=== PATIENT | male | born 1950 | race Caucasian/White ===

== ENCOUNTER 2016-09-26 10:23 | Inpatient (IN) | payer MEDICARE ==
[~2016-09-26] VITALS: Ht 182.9 cm; Wt 105.9 kg
[~2016-09-26 10:23] MED LIST: AMLO5TAB2 PO; ASPI325T PO; BENA20TA PO; FENO145T2 PO; GABA300C5 PO; HYDR-3583 PO; MEST60TA PO; MULT1TAB85 PO; PRAV40TA2 PO; PRED5TAB PO
[2016-09-27] MEDS: POVIDONE IODINE 7.5% SCRUB 118 ML BOTTLE TOP SCH (06:15)
[2016-09-27] MEDS ORDERED: ROPIVACAINE PERI-ARTICULAR INJECTION. PERIART SCH ×5 (06:15)
[2016-09-27] MEDS ORDERED: VANCOMYCIN 1000 MG/NS 250 ML (for <70 kg) IV SCH ×2 (06:15)
[2016-09-27] MEDS ORDERED: ceFAZolin 2 GM PREMIX 50 ML IV SCH (06:15)
[2016-09-27] MEDS ORDERED: LACTATED RINGER'S 1000 ML IV SCH (06:30)
[2016-09-27] MEDS ORDERED: INSULIN HUMAN REGULAR 1,000 UNITS/10 ML VIAL SQ PRN (06:30)
[2016-09-27] MEDS ORDERED: DEXAMETHASONE SOD PHOS 20 MG/5 ML VIAL IV ONE (06:30)
[2016-09-27] MEDS ORDERED: SODIUM CHLORID 0.9% 500 ML IV SCH (06:30)
[2016-09-27] MEDS ORDERED: METOPROLOL TARTRATE 25 MG TAB PO PRN (06:30)
[2016-09-27 06:41] VITALS: BP 140/84; PULSE 96; RESP 16; TEMP 97.1; O2SAT 100
--- NOTE | 2016-09-27 06:56 | HHI.DCPOC ---
Discharge Care Plan Diagnosis: (1) Primary localized osteoarthrosis, lower leg Your Health Problems Are: Difficulty with ADL Goals to Promote Your Health * To prevent worsening of your condition and complications * To maintain your health at the optimal level Directions to Meet Your Goals Take your medications as prescribed Follow your dietary instruction Follow activity as directed Keep your appointments as scheduled Take your immunizations and boosters as scheduled If your symptoms worsen call your PCP, if no PCP go to Urgent Care Center or Emergency Room Smoking is Dangerous to Your Health. Avoid second hand smoke Call the 24-hour hour crisis hotline for domestic abuse at Alexy Parker Sep 27, 2016 06:56
--- NOTE | 2016-09-27 06:57 | HHI.FF ---
Face to Face Verification Diagnosis: (1) Primary localized osteoarthrosis, lower leg Physical Therapy Gait training, Transfer training, bed to chair Knee: Total knee Left LE Weight Bearing: WB as tolerated Left LE Range of Motion: Active ROM Nursing Nursing: Jennifer teaching, Dressing changes Dressing Changes: Daily dressing change I have seen patient Eloy Altman on 09/27/16. My clinical findings support the need for the requested home health care services because: Limited ability to care for self High risk of falls I certify that my clinical findings support that this patient is homebound because: Post-op weakness Unsteady gait/balance Alexy Parker Sep 27, 2016 06:57
[2016-09-27] MEDS ORDERED: CPMMACHINE (06:58)
[2016-09-27] MEDS ORDERED: COMMODE 3-IN-11 MIS (06:58)
[2016-09-27] MEDS ORDERED: WALKER WHEELS/F1 MIS (06:58)
[2016-09-27] MEDS ORDERED: SODIUM CHLORIDE 0.9% IV SCH (07:00)
[2016-09-27] MEDS ORDERED: TRANEXAMIC ACID IV SCH (07:00)
[2016-09-27] MEDS ORDERED: MIDAZOLAM HCL 5 MG/5 ML VIAL ONE (07:34)
[2016-09-27] MEDS: GENTAMICIN SULFATE 80 MG/2 ML VIAL ONE ×2 (08:58→09:11)
[2016-09-27] MEDS ORDERED: ACETAMINOPHEN 1000 MG/100 ML VIAL IV ONE (09:57)
[2016-09-27] MEDS ORDERED: ALUMINUM/MAGNESIUM/SIMETH 30 ML CUP PO PRN (10:15)
[2016-09-27] MEDS ORDERED: diphenhydrAMINE HCL 50 MG/ML VIAL IV PRN (10:15)
[2016-09-27] MEDS ORDERED: BISACODYL 10 MG SUPP PR PRN (10:15)
[2016-09-27] MEDS ORDERED: Post-op Orders (for Pharmacy) MISC XX ONE (10:15)
[2016-09-27] MEDS ORDERED: NALOXONE HCL 0.4 MG/ML AMP IV PRN (10:15)
[2016-09-27] MEDS ORDERED: MAGNESIUM HYDROXIDE SUSP 30 ML CUP PO PRN (10:15)
[2016-09-27] MEDS ORDERED: MORPHINE SULFATE 4 MG/ML INJ IV PUSH PRN (10:15)
[2016-09-27] MEDS ORDERED: SODIUM CHLORIDE 0.9% FLUSH 5 ML FLUSH IVF PRN (10:15)
[2016-09-27] MEDS ORDERED: ZOLPIDEM TARTRATE 5 MG TAB PO PRN (10:15)
[2016-09-27] MEDS ORDERED: ONDANSETRON HCL 4 MG/2 ML VIAL IVP PRN (10:15)
--- NOTE | 2016-09-27 10:20 | PD.OP ---
cc: Aditya Smith MD Operative Report Date of Surgery: Sep 27, 2016 Preoperative Diagnosis: Left knee severe osteoarthritis Postoperative Diagnosis: Same Procedure: Left total knee arthroplasty Anesthesia: Gen. and adductor canal block Surgeon: Aditya Smith Fertilizer Applicator(s): MARYANN Walker The surgical procedure was assisted by my Advanced Registered Nurse Practitioner. My VINE [employer] F[employer]ING SUPERVISOR presence was necessary throughout this case for the manipulation and positioning of the surgical extremity. My VINE FR[employer] FARMING SUPERVISOR was assisting me throughout the duration of this procedure. The skill set of an Advance Registered Nurse Practitioner was medically necessary to complete this procedure. During the surgical case, the certified surgical tech/first assistant was working at the back table and the Advance Registered Nurse Practitioner was directly assisting me. Operation and Findings: IMPLANTS: DePuy Attune: Patella: size 35. Femur, posterior stabilized size 8. Tibia, rotating platform size 8. Tibial insert, rotating platform, posterior stabilized size 7 mm thickness. ESTIMATED BLOOD LOSS: 150 cc TOURNIQUET TIME: 43 minutes at 250 mmHg pressure. JUSTIFICATION FOR PROCEDURE: The patient has end-stage osteoarthritis to the knee. There is an attached conservative measures pathway form in the chart that describes the nonoperative measures that were undertaken prior to consideration of surgical management. The patient understood the risks and benefits of surgical management. See my office notes for further details PROCEDURE: The patient was brought back to the operative theatre. Adequate anesthesia was obtained. The patient received intravenous vancomycin and Ancef. The lower extremity was prepped and draped in the usual sterile fashion.The leg was exsanguinated, the tourniquet was raised. A standard anterior incision was performed followed by medial parapatellar arthrotomy was performed. End-stage arthritis was identified. Osteotomy of the patella was performed. We drilled holes for the patella. We trialed the patella component. We placed an intramedullary guide into the distal femur. We ultimately resected 14 mm off of the distal femur in 5 degrees of valgus. The remnants of the ACL and PCL were resected. Osteotomy of the proximal tibia was performed, resecting 5 mm off of the medial side. This was done with 3 degrees of posterior slope using an extramedullary guide. The distal end of the guide was placed in the mid aspect of the ankle. The femur was sized, and four chamfer cuts were completed in 3 of external rotation. We then cut the central box in the distal femur to replace the PCL. We resected the remnants of the menisci and removed osteophytes off of the femur and tibia. We then trialed the knee. We punched the tibia for the keel, and then used standard technique to cement in components. Excess cement was removed. We trialed the knee again and the final polyethylene thickness was chosen to provide extension to 0 degrees, and flexion of 140 degrees to gravity. The ligaments were appropriately balanced. Lateral release was necessary to obtain excellent patellofemoral tracking. The tourniquet was released and adequate hemostasis was obtained. An intra- articular injection of a ropivacaine cocktail was injected. The posterior knee was inspected for excess cement, which was removed. The final polyethylene was put into position after thorough irrigation. We then closed deep fascia with a #2 Stratafix followed by skin with 2-0 Vicryl followed by lamar. Postop plan is to weight-bear as tolerated. DVT prophylaxis will be performed with Adeel, SCAR cabezas, early mobilization, and Lovenox followed by aspirin. Aditya Smith MD Sep 27, 2016 10:20
[2016-09-27] MEDS ORDERED: ENOX40P SQ (10:22)
[2016-09-27] MEDS ORDERED: HYDR-3366 PO (10:22)
[2016-09-27] MEDS ORDERED: ASPI325T PO (10:22)
[2016-09-27] MEDS ORDERED: DO NOT ADM ANY ANTICOAGULANT DRUGS XX PRN (10:45)
[2016-09-27] MEDS ORDERED: fentaNYL CITRATE 250 MCG/5 ML AMP ONE (10:51)
[2016-09-27] MEDS ORDERED: *morphine SULFATE 8 MG/ML PERIprocedure ONLY ONE ×2 (10:54→11:54)
[2016-09-27] MEDS ORDERED: TRANEXAMIC ACID INJ 970 MG in SODIUM CHLORIDE 0.9% INJ 100 ML IV SCH (11:00)
--- NOTE | 2016-09-27 11:15 | RADRPT ---
EXAM DATE/TIME: 09/27/2016 10:46 [facility] COMPARISON: No previous studies available for comparison. INDICATIONS : Post-op total left knee arthroplasty. MEDICAL HISTORY : Hypertension. SURGICAL HISTORY : Total knee replacement, right. ENCOUNTER: Initial ACUITY: 1 day PAIN SCORE: 5/10 LOCATION: Left knee. FINDINGS: Two view examination of the left knee demonstrates postoperative left total knee replacement. Skin st aples anteriorly. Air in soft tissues. CONCLUSION: 1. Postoperative left total knee replacement. No complications identified. Sreekanth Warren MD on September 27, 2016 at 11:12 Board Certified Radiologist. This report was verified electronically.
[2016-09-27] MEDS: SODIUM CHLOR 0.9% 1000 ML INJ 1,000 ML IV SCH ×2 (11:20→21:26)
[2016-09-27] MEDS ORDERED: PROPOFOL 200 MG/20 ML AMP IV ONE (12:00)
[2016-09-27] MEDS ORDERED: LACTATED RINGER'S 1000 ML INJ 1,000 ML IV ONE (12:00)
[2016-09-27] MEDS ORDERED: BUPIVACAINE LIPOSOME PF 1.3% 20 ML VIAL ONE (12:30)
[2016-09-27] MEDS: PYRIDOSTIGMINE BROMIDE 60 MG TAB PO SCH ×2 (13:00→17:20)
--- NOTE | 2016-09-27 15:07 | PD.CONS ---
HPI Service [facility] Hospitalists Consult Requested By Dr. Aditya Smith Reason for Consult Medical Management Primary Care Physician Porter Stock, PhD, MD Diagnoses: History of Present Illness Mr. Altman is a pleasant 66 y/o WM with HTN, hyperlipidemia, Myasthenia gravis , and osteoarthritis. Pt was admitted to [facility] on 09/27/16 for a left total knee arthroplasty with Dr. Smith. Pt was previously seen by us during admission in 03/1206 when he had right total knee arthroplasty with Dr. Smith. His post-operative course was uneventful during that admission. [facility] Hospitalist team was consulted again to help manage the pts chronic medical issues. Pt was seen post-operatively and is doing well. Pts vital signs are stable. Garcia cath in place. Denies any chest pain, SOB, palpitations, dizziness, nausea or vomiting. Review of Systems Constitutional: DENIES: Fever, Chills Respiratory: DENIES: Cough, Shortness of breath Cardiovascular: DENIES: Chest pain, Palpitations Gastrointestinal: DENIES: Abdominal pain, Nausea, Vomiting Genitourinary: DENIES: Hematuria Integumentary: DENIES: Rash Neurologic: DENIES: Headache Psychiatric: DENIES: Confusion Past Family Social History Past Medical History Osteoarthritis HTN Hyperlipidemia Myasthenia gravis Condyloma acuminata/HPV DDD Peyronie's disease Past Surgical History Right total knee arthroplasty with Dr. Smith on 04/19/16 Right SI injection 10/2015 Left knee with partial synovectomy in 2009 Right knee surgery in [place] in the lumbar spine Cryotherapy for genital wart removal Tonsillectomy Bilateral blepharoplasty Reported Medications Prednisone 5 Mg Tab 5 Mg PO DAILY Pravastatin 40 Mg Tab 40 Mg PO DAILY Multivitamin Men (Multiple Vitamins W/ Minerals) 1 Tab Tab 1 Tab PO DAILY Mestinon (Pyridostigmine [place]) 60 Mg Tab 30 Mg PO TID Hydrocodone-Acetaminophen 10-325 mg Tab 2.5 Mg PO BID Gabapentin 300 Mg Cap 300 Mg PO BID Fenofibrate 145 Mg Tab 145 Mg PO HS Benazepril (Benazepril HCl) 20 Mg Tab 20 Mg PO DAILY Aspirin 325 Mg Tab 325 Mg PO DAILY Amlodipine (Amlodipine Besylate) 5 Mg Tab 5 Mg PO DAILY Allergies: Coded Allergies: Lipitor (Verified Allergy, Unknown, 09/27/16) pt states he is not allergic Family History Mother with hx of breast cancer Father with hx of Alzheimer's disease Social History Denies any alcohol, tobacco or illicit drug use Pt is currently and lives locally with his . 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 Physical Exam Vital Signs Vital Signs Date Time Temp Pulse Resp B/P Pulse Ox O2 Delivery O2 Flow Rate FiO2 09/27/16 13:00 111 14 128/77 96 Room Air 09/27/16 12:00 105 15 114/77 95 Room Air 09/27/16 11:30 97.5 100 15 127/74 97 Nasal Cannula 1 09/27/16 11:20 15 09/27/16 11:15 101 15 125/72 100 Nasal Cannula 3 09/27/16 11:00 100 15 120/75 98 Nasal Cannula 3 09/27/16 10:45 100 14 136/83 96 Nasal Cannula 3 09/27/16 10:37 97.5 102 14 129/77 96 Nasal Cannula 3 09/27/16 06:41 97.1 96 16 140/84 100 Physical Exam GENERAL: This is a well-nourished, well-developed patient, in no apparent distress. HEENT: Atraumatic. Normocephalic. No temporal or scalp tenderness. No scleral icterus. Airway patent. NECK: Trachea midline, supple, nontender CARDIO: Regular. RESP: CTA bilaterally. ABD: +BS, soft, non-tender, nondistended. EXT: Left knee bandages are c/d/i NEURO: Awake and alert. Motor and sensory grossly within normal limits. Normal speech. Laboratory Laboratory Tests Test 09/27/16 06:32 Blood Type O POSITIVE Antibody Screen NEGATIVE Imaging Last Impressions Knee X-Ray 09/27/16 1015 Signed Impressions: Service Date/Time: Tuesday, September 27, 2016 10:46 - CONCLUSION: 1. Postoperative left total knee replacement. No complications identified. Sreekanth Warren MD Assessment and Plan Problem List: (1) Primary localized osteoarthrosis, lower leg Status: Acute Plan: - Pt s/p left total knee arthroplasty on 09/27/[address] Smith - Post-op pain control per Ortho - PT daily - IS - Constipation precautions - DVT prophylaxis (2) Osteoarthritis Status: Chronic Plan: - See above. (3) HTN (hypertension) Status: Chronic Plan: - Home meds continued, Lisinopril 20mg po daily and Norvasc 5mg po daily - Monitor (4) Myasthenia gravis Status: Chronic Plan: - Cont. Mestinon 30mg po TID - Pt also takes Prednisone 5mg po daily (5) Hyperlipidemia Status: Chronic Plan: - Home meds continued Assessment and Plan Patient examined. Assessment and plan formulated with Nasra Rodas PA-C. I agree with the above. Problem Qualifiers (1) Primary localized osteoarthrosis, lower leg: Qualified Code: M17.12 - Primary localized osteoarthrosis, lower leg, left Nasra Rodas Sep 27, 2016 15:07 Davy Josue DO Sep 30, 2016 22:46
[2016-09-27 15:34] VITALS: BP 148/79; PULSE 119; RESP 19; TEMP 95.9; O2SAT 94
[2016-09-27 16:00] VITALS: BP 148/79; PULSE 119; RESP 19; TEMP 95.9; O2SAT 94
[2016-09-27] MEDS: ACETAMINOPHEN/HYDROcodone 325 MG/10 MG TAB PO PRN ×2 (17:28→22:30)
[2016-09-27 20:05] VITALS: BP 128/73; PULSE 106; RESP 19; TEMP 98.3; O2SAT 93
[2016-09-27] MEDS: SODIUM CHLORIDE 0.9% FLUSH 5 ML FLUSH IVF SCH (21:15)
[2016-09-27] MEDS: FENOFIBRATE 145 MG TAB PO SCH (21:22)
[2016-09-27] MEDS: GABAPENTIN 300 MG CAP PO SCH (21:22)
[2016-09-28] VITALS (7 sets, daily range): BP systolic 116–142; BP diastolic 65–82; PULSE 94–104; RESP 18–20; TEMP 95.9–98.1; O2SAT 93–96
[2016-09-28] MEDS: POVIDONE IODINE 7.5% SCRUB 118 ML BOTTLE TOP SCH (04:03)
[2016-09-28] MEDS: SODIUM CHLOR 0.9% 1000 ML INJ 1,000 ML IV SCH ×2 (05:33→16:15)
[2016-09-28 07:20] LABS: HEMATOCRIT 27.7 % (39.0-51.0); MEAN CELL VOLUME 92.4 FL (80.0-100.0); MEAN CORPUSCULAR HEMOGLOBIN 31.5 PG (27.0-34.0); MEAN CORPUSCULAR HGB CONC 34.1 % (32.0-36.0); PLATELET COUNT 231 TH/MM3 (150-450); RED BLOOD COUNT 2.99 MIL/MM3 (4.50-5.90); RED CELL DISTRIBUTION WIDTH 13.1 % (11.6-17.2); REVIEW FLAG FINAL; WHITE BLOOD COUNT 11.8 TH/MM3 (4.0-11.0)
[2016-09-28] MEDS ORDERED: DEXAMETHASONE SOD PHOS 20 MG/5 ML VIAL IV ONE (07:45)
[2016-09-28] MEDS: PYRIDOSTIGMINE BROMIDE 60 MG TAB PO SCH ×3 (08:17→18:21)
[2016-09-28] MEDS: predniSONE 5 MG TAB PO SCH (08:17)
[2016-09-28] MEDS: ENOXAPARIN SODIUM 40 MG/0.4 ML SYRINGE SQ SCH (08:17)
[2016-09-28] MEDS: GABAPENTIN 300 MG CAP PO SCH ×2 (08:17→21:33)
[2016-09-28] MEDS: LISINOPRIL 20 MG TAB PO SCH (08:17)
[2016-09-28] MEDS: SODIUM CHLORIDE 0.9% FLUSH 5 ML FLUSH IVF SCH ×2 (08:18→21:33)
[2016-09-28] MEDS: amLODIPine BESYLATE 5 MG TAB PO SCH (08:19)
[2016-09-28] MEDS: PRAVASTATIN SOD 40 MG TAB PO SCH (08:19)
[2016-09-28] MEDS: ACETAMINOPHEN/HYDROcodone 325 MG/10 MG TAB PO PRN ×3 (08:19→21:32)
--- NOTE | 2016-09-28 11:02 | PD.ORT.PN ---
Subjective Subjective Remarks doing well pain controlled Objective Vitals Vital Signs Date Time Temp Pulse Resp B/P Pulse Ox O2 Delivery O2 Flow Rate FiO2 09/28/16 08:15 94 21 09/28/16 08:00 95.9 95 20 128/80 96 09/28/16 07:41 Room Air 09/28/16 04:40 96.7 94 18 126/66 94 09/28/16 00:03 97.3 96 18 116/65 93 09/27/16 20:05 98.3 106 19 128/73 93 09/27/16 18:12 Nasal Cannula 1.00 09/27/16 16:00 95.9 119 19 148/79 94 09/27/16 15:34 95.9 119 19 148/79 94 09/27/16 13:00 111 14 128/77 96 Room Air 09/27/16 12:00 105 15 114/77 95 Room Air 09/27/16 11:30 97.5 100 15 127/74 97 Nasal Cannula 1 09/27/16 11:20 15 09/27/16 11:15 101 15 125/72 100 Nasal Cannula 3 I/O 09/27/16 09/27/16 09/27/16 09/28/16 09/28/16 09/28/16 07:00 15:00 23:00 07:00 15:00 23:00 Intake Total 1810 ml 1443 ml 1262 ml Output Total 675 ml 500 ml 1200 ml Balance 1135 ml 943 ml 62 ml Intake Oral 720 ml 480 ml IV Total 510 ml 723 ml 782 ml Other 1300 ml Output Urine Total 525 ml 500 ml 1200 ml Estimated Blood Loss 150 ml # Bowel Movements 0 0 Result Diagram: 09/28/16 0620 Imaging TKA no complications Objective Remarks LLE dressed and clean, 2+ DP, moves toes, calf soft Assessment & Plan Ortho Post Op Day #: 1 Problem List: Assessment and Plan POD #1 s/p L TKA Pt wants SNF due to stairs at home lovenox WBAT change dressing tomorrow Aditya Smith MD Sep 28, 2016 11:02
[2016-09-28] MEDS: FENOFIBRATE 145 MG TAB PO SCH (21:00)
[2016-09-28] MEDS: MULTIVITAMINS/MINERALS THERAPEUTIC TAB PO SCH (21:33)
[2016-09-28] MEDS: DOCUSATE SODIUM 100 MG CAP PO SCH (21:33)
[2016-09-29] MEDS: POVIDONE IODINE 7.5% SCRUB 118 ML BOTTLE TOP SCH (00:10)
[2016-09-29] MEDS: SODIUM CHLOR 0.9% 1000 ML INJ 1,000 ML IV SCH ×2 (00:10→12:15)
[2016-09-29 00:15] VITALS: BP 136/76; PULSE 98; RESP 18; TEMP 97.7; O2SAT 94
[2016-09-29 05:13] LABS: HEMATOCRIT 28.8 % (39.0-51.0); MEAN CELL VOLUME 93.2 FL (80.0-100.0); MEAN CORPUSCULAR HEMOGLOBIN 32.3 PG (27.0-34.0); MEAN CORPUSCULAR HGB CONC 34.7 % (32.0-36.0); PLATELET COUNT 245 TH/MM3 (150-450); RED BLOOD COUNT 3.09 MIL/MM3 (4.50-5.90); RED CELL DISTRIBUTION WIDTH 13.2 % (11.6-17.2); REVIEW FLAG FINAL; WHITE BLOOD COUNT 11.1 TH/MM3 (4.0-11.0)
[2016-09-29 08:00] VITALS: BP 147/99; PULSE 101; RESP 20; TEMP 95.3; O2SAT 97
[2016-09-29] MEDS: ENOXAPARIN SODIUM 40 MG/0.4 ML SYRINGE SQ SCH (08:31)
[2016-09-29] MEDS: ACETAMINOPHEN/HYDROcodone 325 MG/10 MG TAB PO PRN ×3 (08:31→16:14)
[2016-09-29] MEDS: LISINOPRIL 20 MG TAB PO SCH (08:32)
[2016-09-29] MEDS: DOCUSATE SODIUM 100 MG CAP PO SCH (08:32)
[2016-09-29] MEDS: MULTIVITAMINS/MINERALS THERAPEUTIC TAB PO SCH (08:32)
[2016-09-29] MEDS: predniSONE 5 MG TAB PO SCH (08:32)
[2016-09-29] MEDS: PYRIDOSTIGMINE BROMIDE 60 MG TAB PO SCH ×2 (08:32→12:35)
[2016-09-29] MEDS: GABAPENTIN 300 MG CAP PO SCH (08:32)
[2016-09-29] MEDS: amLODIPine BESYLATE 5 MG TAB PO SCH (08:32)
[2016-09-29] MEDS: PRAVASTATIN SOD 40 MG TAB PO SCH (08:32)
[2016-09-29] MEDS: SODIUM CHLORIDE 0.9% FLUSH 5 ML FLUSH IVF SCH (09:00)
[2016-09-29 11:58] VITALS: BP 147/80; PULSE 111; RESP 20; TEMP 95.9; O2SAT 98
[2016-09-29 16:09] VITALS: BP 124/69; PULSE 104; RESP 20; TEMP 96; O2SAT 98
--- NOTE | 2016-10-01 18:37 | HHI.DS ---
Discharge Summary Admission Date Sep 27, 2016 at 05:40 Discharge Date: Sep 29, 2016 Admitting Diagnosis primary localized OA, lower leg Diagnosis: (1) Primary localized osteoarthrosis, lower leg Diagnosis: Principal Procedures left TKA Brief History This is a 66 year old male patient with severe OA of the left knee CBC/BMP: 09/29/16 0418 Significant Findings Laboratory Tests Test 09/29/16 04:18 White Blood Count 11.1 TH/MM3 (4.0-11.0) Red Blood Count 3.09 MIL/MM3 (4.50-5.90) Hemoglobin 10.0 GM/DL (13.0-17.0) Hematocrit 28.8 % (39.0-51.0) PE at Discharge LLE dressed and clean, 2+ DP, moves toes, calf soft Hospital Course The patient was admitted to the hospital for severe OA of the left knee to have a left TKA. The patient's surgery went well with no complications. The patient had a normal hospital course. The patient is WBAT. The patient was discharged to SNF. The patient will f/u with Dr Smith in 1-2 weeks. Pt Condition on Discharge: Stable Discharge Disposition: Discharge to SNF Discharge Instructions Diet Instructions: As Tolerated, No Restrictions Activities You Can Perform: Weight Bearing as Bhavani Activities to Avoid: Strenuous Activity Follow up Referrals: Orthopedics with Aditya Smith MD New Medications: Aspirin (Aspirin) 325 Mg Tab 325 MG PO DAILY Start Aspirin after Lovenox is completed. Prevent Blood Clot # 30 Ref 0 TAB Commode 3-in-1 (Commode 3-in-1) 1 Mis Mis 1 EA .ROUTE DIRECTED #1 Ref 0 EA CPM-Continuous Passive Motion Machine (CPM-Continuous Passive Motion Machine) 1 Ea Device 1 EA .ROUTE DIRECTED #1 Ref 0 EA Enoxaparin Inj (Lovenox Inj) 40 Mg/0.4 Ml Syr 40 MG SQ DAILY Start Aspirin after Lovenox is completed. Blood Clot Prevention # 8 Ref 0 SYRINGE Hydrocodone-Acetaminophen ([place]) 10-325 Mg Tab 1-2 TAB PO Q4H PRN PAIN #60 Ref 0 TAB Walker with Front Wheels (Walker with Front Wheels) 1 Mis Mis 1 EA .ROUTE DIRECTED #1 Ref 0 EA Continued Medications: Amlodipine (Amlodipine) 5 Mg Tab 5 MG PO DAILY Blood Pressure Management #30 Ref 0 TAB Benazepril (Benazepril) 20 Mg Tab 20 MG PO DAILY Blood Pressure Management #30 Ref 0 TAB Fenofibrate (Fenofibrate) 145 Mg Tab 145 MG PO HS #30 Ref 0 TAB Gabapentin (Gabapentin) 300 Mg Cap 300 MG PO BID #60 Ref 0 CAP Multiple Vitamins W/ Minerals (Multivitamin Men) 1 Tab Tab 1 TAB PO DAILY Nutritional Supplement Ref 0 TAB Pravastatin (Pravastatin) 40 Mg Tab 40 MG PO DAILY Cholesterol Management #30 Ref 0 TAB Prednisone (Prednisone) 5 Mg Tab 5 MG PO DAILY Ref 0 TAB Pyridostigmine (Mestinon) 60 Mg Tab 30 MG PO TID Manage Myastenia Gravis #180 Ref 0 TAB Discontinued Medications: Aspirin (Aspirin) 325 Mg Tab 325 MG PO DAILY #30 Ref 0 TAB Hydrocodone-Acetaminophen (Hydrocodone-Acetaminophen) 10-325 mg Tab 2.5 MG PO BID PAIN Ref 0 TAB Alexy Parker Oct 01, 2016 18:37
== END 2016-09-29 18:29 | DRG 470 ==
LOC: HSDI 09-27 05:40 → N06A 09-27 15:01
PROVIDERS: ADMIT Orthopaedic Surgery; ATTEND Orthopaedic Surgery
PROC: 3E0T3CZ (ICD-10-PCS; 2016-09-27)
PROC: 0SRD0J9 Replacement of Left Knee Joint with Synthetic Substitute, Cemented, Open Approach (ICD-10-PCS; principal; 2016-09-27 08:11)
DX: M17.12 Unilateral primary osteoarthritis, left knee (principal); G70.00 Myasthenia gravis without (acute) exacerbation; I10 Essential (primary) hypertension; E78.5 Hyperlipidemia, unspecified; Z96.651 Presence of right artificial knee joint
CPT/HCPCS: 73560; 85027; 86850; 86900; 86901; 94150; C1776; C9290; J0131; J0171; J0690; J0735; J1100; J1580; J1650; J1885; J2250; J2270; J2795; J3010; J3370; J7030; J7050; J7120; J7512; L1830

== ENCOUNTER 2017-05-17 06:19 | Inpatient (IN) | payer MEDICARE ==
[2017-05-17] VITALS (12 sets, daily range): BP systolic 126–143; BP diastolic 72–88; PULSE 69–87; RESP 16–18; TEMP 97.6–98.5; O2SAT 94–96
[~2017-05-17] VITALS: Ht 180.3 cm; Wt 94.8 kg
[~2017-05-17 06:19] MED LIST changes: +COMMODE 3-IN-11 MIS; +CPMMACHINE; +ENOX40P SQ; +HYDR-3366 PO; -HYDR-3583 PO; +WALKER WHEELS/F1 MIS
[2017-05-17] MEDS ORDERED: IOHEXOL 350 MG/ML 100 ML BTL (for Cath Lab) OTHER ONE (06:20)
[2017-05-17] MEDS ORDERED: MIDAZOLAM HCL 2 MG/2 ML VIAL ONE (08:22)
[2017-05-17] MEDS ORDERED: HEPARIN-NS/PF INJ 1,000 ML ONE (08:22)
[2017-05-17] MEDS ORDERED: NITROGLYCERIN INJ 5 ML ONE (08:23)
[2017-05-17] MEDS ORDERED: HEPARIN SODIUM - IV 10,000 UNITS/10 ML VIAL ONE (08:23)
[2017-05-17] MEDS ORDERED: MULTTAB67 PO (08:33)
[2017-05-17] MEDS ORDERED: OMEGA K P-ARTICULR (08:33)
[2017-05-17] MEDS ORDERED: METO25TA3 PO (08:33)
[2017-05-17] MEDS ORDERED: OMEP20TA PO (08:33)
[2017-05-17] MEDS ORDERED: [UNRECOGNIZED DRUG - OTHER] P-ARTICULR (08:33)
[2017-05-17] MEDS ORDERED: TUMERIC CURCUMIN PO (08:33)
[2017-05-17] MEDS ORDERED: ARTIDRO EACH EYE (08:33)
[2017-05-17] MEDS ORDERED: [UNRECOGNIZED DRUG - CODE] PO (08:33)
[2017-05-17] MEDS ORDERED: TYLE325T PO (08:33)
[2017-05-17] MEDS ORDERED: MAGN400T2 PO (08:33)
[2017-05-17] MEDS ORDERED: GLUCOCIL PO (08:33)
[2017-05-17] MEDS ORDERED: [UNRECOGNIZED DRUG - OTHER] (08:33)
[2017-05-17] MEDS ORDERED: LACTCAP8 PO (08:33)
[2017-05-17] MEDS ORDERED: PEPP90CA PO (08:33)
[2017-05-17] MEDS ORDERED: [UNRECOGNIZED DRUG - OTHER] P-ARTICULR (08:33)
[2017-05-17] MEDS ORDERED: CYAN1TAB24 PO (08:33)
[2017-05-17] MEDS ORDERED: SEA KELP P-ARTICULR ×2 (08:33)
[2017-05-17] MEDS ORDERED: BACL10TA PO (08:33)
[2017-05-17] MEDS ORDERED: VITA250T3 PO (08:33)
[2017-05-17] MEDS ORDERED: GARC500T PO (08:33)
[2017-05-17] MEDS ORDERED: OREGANO OIL PO (08:33)
[2017-05-17] MEDS ORDERED: FISHCAP4 PO (08:33)
[2017-05-17] MEDS ORDERED: BENA40TA PO (08:33)
[2017-05-17] MEDS ORDERED: TH F1000 PO (08:33)
[2017-05-17] MEDS ORDERED: SAW450CA2 PO (08:33)
[2017-05-17] MEDS ORDERED: CO Q100C9 P-ARTICULR (08:33)
[2017-05-17] MEDS ORDERED: NITR0.4S SL (08:33)
[2017-05-17] MEDS ORDERED: ZINC50TA2 PO (08:34)
[2017-05-17] MEDS ORDERED: MISC INFORMATION XX ONE (09:30)
[2017-05-17] MEDS ORDERED: oxyCODONE/ACETAMINOPHEN 5 MG/325 MG TAB PO PRN ×2 (09:30)
[2017-05-17] MEDS ORDERED: BACITRACIN OINT 0.9 GM PKT TOP ONE (09:30)
--- NOTE | 2017-05-17 09:33 | CATHPROC ---
[employer] HIS Report Study Information Study Number Admission Scheduled Start Study Start [id number] May 17 2017 6:19AM 05/17/2017 May 17 2017 8:14AM [place] [facility] Cardiac Catheterization Admit Source Facility Department Other [facility] - Director Of Accounting Physician and Clinical Staff Initial Hermann Malin Cloud Consultant Santo RN, Joe Recorder Wesley Rodríguez,RT(R) Stephanie Lara,RT(R) (BS) Procedures Performed Procedure Location (Site) Vessel Name Angiogram LV LV Ventricle Coronary Angiograms LCA Left Coronary Coronary Angiograms RCA Right Coronary L Heart Cath Equipment Time Hydroelectric Production Manager Description Size Mfg Part Number Used/Scraped TRANSDUCER, TRUWAVE [id number] 08:35 DOHERTY BERMUDEZ * Used W/STOCKCOCK *[id number] *[id number] *[id number] PIGTAIL ANG. 145 INFINITI [id number] CATHETER *[id number] 08:35 [employer] INDUSTRIES PACK, CCL CUSTOM * Used *[id number] 08:35 [employer] SUPPORT, ARTERIAL ADULT 27698 *[id number] Used [id number] 08:35 [employer] PACER PEN, SKIN DUAL W/ RULER * Used *[id number] BAND, RADIAL COMPRESSION TR [id number] 09:19 [employer] MEDICAL 24CM Used SHORT 24 *[id number] SHEATH, FR6 RADIAL PRELUDE 08:35 Blackstrap FR 6 [id number] Used EASE 11CM [id number] 08:35 [employer] WIRE, EXCHANGE 260CM 3MMJ 260CM Used *[id number] 09:14 NAMIC TUBING, HIGH PRESSURE 20" 20" Used *[id number] 09:14 NAMIC TUBING, HIGH PRESSURE 20" 20" Used *[id number] 08:35 [employer] OMNIPAQUE, 350 MG, 150ML 150ML [id number] Used 09:16 [employer] OMNIPAQUE, 350 MG, 50ML 50ML [id number] Used [id number] 08:35 [employer] BLANKET,WARM AIR CCL * Used *[id number] Equipment Model, Serial, Lot Number and Expiration Data Description Model Number Serial Number Lot Number Expiration Date BAND, RADIAL COMPRESSION TR [id number] 02-22-2020 SHORT 24 History: Allergies Allergy Reaction atorvastatin History: Risk Factors Family History of Hypertension Dyslipidemia Previous [facility] Previous Heart Failure Premature CAD Yes Yes No No No Prior Valve Prior PCI Prior CABG Surgery No No No Cerebrovascular Peripheral Artery Chronic Lung On Dialysis Diabetes Disease Disease Disease No No No No No History: Stress Tests Stress or Imaging Studies Performed Yes Standard Exercise Stress Test No Stress Echo No Stress Test SPECT Stress Test SPECT Result Stress Test SPECT Ischemia Risk/Extent Yes Positive High Stress Test CMR No Cardiac CTA Coronary Calcium Score No No History: Other Current Smoker No Labs Hgb (g/dl) Hct (%) WBC (l/cumm) Platelets (thousands) 11.60-17.00 35.00-51.00 4.00-11.00 150.00-450.00 11.5 35.7 10.4 335 Glucose (mg/dl) BUN (mg/dl) Creatinine (mg/dl) BUN:Creatinine (1:x) 74.00-106.00 7.00-18.00 0.50-1.30 10.00-20.00 115 18 0.8 22.5 Na (meq/l) K (meq/l) 136.00-145.00 3.50-5.10 145 4.5 CPK-MB (ng/ML) 0.50-3.60 Not Drawn Medication Medication Total Dose (Bolus/Oral) Medication Total Dosage/Unit 1% XYLOCAINE 5 mL FENTANYL 50 mcg HEPARIN 5000 units NTG (IC) 200 mcg VERSED 2 mg Medications (Bolus/Oral) Medication Time Given Dosage/Unit Administered By Reason FENTANYL 05/17/2017 8:50:52 AM 50 mcg Joe Blanchard RN 50 mcg FENTANYL given in lab by Joe Blanchard RN in Left Antecubital via Peripheral IV. Ordered by Hermann Gaviria. VERSED 05/17/2017 8:51:39 AM 2 mg Joe Blanchard RN 2 mg VERSED given in lab by Joe Blanchard RN in Left Antecubital via Peripheral IV. Ordered by Hermann Nunn. 1% XYLOCAINE 05/17/2017 8:53:33 AM 5 mL Hermann Nunn 5 mL 1% XYLOCAINE given in lab by Hermann Nunn in Right Radial via Subcutaneous. Ordered by Hermann Nunn. HEPARIN 05/17/2017 8:57:04 AM 5000 units Joe Blanchard RN 5000 units HEPARIN given in lab by Joe Blanchard RN in Left Antecubital via Peripheral IV. Ordered by Hermann Nunn. NTG (IC) 05/17/2017 8:57:19 AM 200 mcg Hermann Nunn 200 mcg NTG (IC) given in lab by Hermann Nunn via Intra-arterial. Ordered by Hermann Nunn. Medication (Drip) Medication Time Given Dosage/Unit Concentration/Unit Diluent (ml) Solution IV Solutions 05/17/2017 8:23:17 AM 0 mL (IV) 500 NaCl .9 Patient arrived on IV Solutions given by Hermann Nunn in Left Antecubital via Peripheral IV. Pump/D rip Flow = 20 ml/hr using NaCl .9. Ordered by Hermann Nunn. Initial Case Assessment Cardiovascular HR Rhythm NIBP Chest Pain 62 sr 123/79 0 Edema Present Skin color Skin None Normal Warm Dry Circulatory - Right Pulses Dorsalis Pedis Femoral Radial 3 3 3 Scale (0,1,2,3,4,d) Scale (0,1,2,3,4,d) Neurological State Oriented to time-place- Alert Moves all extremities person Respiration - General Respiration Rate SpO2 (%) O2 (lpm) (B/min) 18 96 0 Final Case Assessment Cardiovascular HR Rhythm NIBP Chest Pain 68 sr 123/78 0 Edema Present Skin color Skin None Normal Warm Dry Circulatory - Right Pulses Dorsalis Pedis Femoral Radial 3 3 3 Scale (0,1,2,3,4,d) Scale (0,1,2,3,4,d) Neurological State Oriented to time-place- Alert Moves all extremities person Respiration - General Respiration Rate SpO2 (%) O2 (lpm) (B/min) 18 96 2 Chronological Log Time Study Chronological Log 8:14:32 Patient arrived via Bed. 8:14:34 Patient Name, D.O.B, / Armband Verified By R.N. 8:14:35 Consent signed by the physician and the patient and verified by the Director Of Accounting staff. 8:14:36 Pre-op and post- op instructions given; patient acknowledges understanding of instructions. Vitals capture started with the following parameters, Patient=Adult, Interval=5 min, Initial Pre vgsvw=422 mmHg, 8:20:49 Deflation Rate=5 mmHg, Cuff placed on Left Arm 8:21:28 HR=66 bpm, TORM=445/79 mmhg, SpO2=97.0 %, Resp=18 B/min, Zaldivar=2 8:22:37 Verbal Stimulation=2 Physical Stimulation=2 Airway=2 Respiration=2 TOTAL=8. (0=absent, 1=oliveira ited, 2=present) 8:22:47 Presedation assessment performed by Director Of Accounting RN. 8:22:49 Patient has been NPO for More than 6Hrs. 8:22:52 Skin Breakdown-noted is scratches present on left forearm. 8:23:08 A # 20 IV was noted in the Antecubital (left). Grade = 0 Patient arrived on IV Solutions given by Hermann Nunn in Left Antecubital via Peripheral IV. P ump/Drip Flow = 20 8:23:17 ml/hr using NaCl .9. Ordered by Hermann Nunn. 8:23:40 History and physical on the chart or being dictated. Assessment: Initial Case, HR=62 BPM, Rhythm=sr, EQXF=226/79 mmhg, Chest Pain=0, Edema=None, [place] r=Normal, Skin = Warm, Dry 8:23:44 Right Pulses: Lan Ped=3, Femoral=3, Radial=3 Neurological: State=Alert, Ox3, OVIEDO Respiration: Resp=18 B/min, SpO2=96 %, O2=0 lpm 8:24:06 Reference ECG taken 8:25:44 Right groin and right radial prepped with 2% chlorhexidine, and with a 3 min. waiting time. 8:26:06 Positive Allens test performed by Dr. Nunn and Wesley Rodríguez. 8:26:23 HR=64 bpm, MTOC=771/78 mmhg, Resp=17 B/min, Zaldivar=2 8:31:24 HR=65 bpm, YCYH=875/75 mmhg, SpO2=96.0 %, Resp=18 B/min, Zaldivar=2 8:34:56 Pressure channel 1 zeroed. 8:36:23 HR=68 bpm, QBLD=921/77 mmhg, SpO2=95.0 %, Resp=18 B/min, Zaldivar=2 8:41:29 HR=63 bpm, ZVXN=434/69 mmhg, SpO2=94.0 %, Resp=16 B/min, Zaldivar=2 8:46:24 HR=67 bpm, FBGS=690/80 mmhg, SpO2=96.0 %, Resp=18 B/min, Zaldivar=2 Time Out. Correct patient, correct procedure,correct physician, ,power injector not loaded with contrast with surgical 8:49:45 team present. Time Out Concurred by MD, individual staff and SURVEY WORKER in procedure. Not loaded at th is time. 8:50:52 50 mcg FENTANYL given in lab by Joe Blanchard RN in Left Antecubital via Peripheral IV. Order ed by Hermann Nunn. 8:51:25 HR=69 bpm, WHYI=614/78 mmhg, SpO2=92 %, Resp=18 B/min, Zaldivar=2 8:51:39 2 mg VERSED given in lab by Joe Blanchard RN in Left Antecubital via Peripheral IV. Ordered Hermann Betancur. 8:53:21 Case Start 8:53:22 Verbal Stimulation=2 Physical Stimulation=2 Airway=2 Respiration=2 TOTAL=8. (0=absent, 1=oliveira ited, 2=present) 8:53:33 5 mL 1% XYLOCAINE given in lab by Hermann Nunn in Right Radial via Subcutaneous. Ordered Hermann Betancur. 8:56:26 HR=67 bpm, JEEN=257/73 mmhg, SpO2=94.0 %, Resp=16 B/min, Zaldivar=2 8:56:43 Access site was Radial Artery. right radial A SHEATH, FR6 RADIAL PRELUDE EASE 11CM FR 6 was advanced into the Radial (right) using the Jonas elizabeth 8:56:52 technique. 8:57:04 5000 units HEPARIN given in lab by Joe Blanchard RN in Left Antecubital via Peripheral IV. Or dered by Hermann Nunn. 8:57:19 200 mcg NTG (IC) given in lab by Hermann Nunn via Intra-arterial. Ordered by Carley Nunn JR 5.0 INFINITI CATHETER FR 6 was advanced over a wire. OMNIPAQUE, 350 MG, 150ML 150ML was use d for 8:58:09 injections. Recorded Pressure: LV, HR=65, Condition=Condition 1 9:01:13 (Left Ventricle) LV 106/11/17 9:01:25 HR=68 bpm, XQCH=202/72 mmhg, SpO2=95.0 %, Resp=18 B/min, Zaldivar=2 Recorded Pressure: LV, Ao, HR=70, Condition=Condition 1 9:01:28 (Left Ventricle) LV 110/11/20, (Aorta) Ao 109/67/86 Recorded Pressure: Ao, HR=70, Condition=Condition 1 9:01:54 (Aorta) Ao 107/64/84 9:02:48 The RCA was injected and visualized at various angles. OMNIPAQUE, 350 MG, 150ML 150ML used . After removing the current catheter a JL 3.5 INFINITI CATHETER FR 6 was advanced over a WIRE, E XCHANGE 260CM 9:03:49 3MMJ 260CM. 9:04:07 The LCA was injected and visualized at various angles. OMNIPAQUE, 350 MG, 150ML 150ML used . 9:06:24 HR=74 bpm, DMRU=956/79 mmhg, SpO2=95.0 %, Resp=15 B/min, Zaldivar=2 9:08:12 The LCA was injected and visualized at various angles. OMNIPAQUE, 350 MG, 150ML 150ML used . 9:10:53 Power Injector being loaded by Joe Blanchard rn. verified by Stephanie Dent. 9:11:25 HR=70 bpm, MOHP=702/81 mmhg, SpO2=94.0 %, Resp=15 B/min, Zaldivar=2 After removing the current catheter a PIGTAIL ANG. 145 INFINITI CATHETER FR 6 was advanced over a WIRE, 9:14:28 EXCHANGE 260CM 3MMJ 260CM. 9:15:51 The LV was injected at 10 cc/sec for a total of 30. OMNIPAQUE, 350 MG, 150ML 150ML used. 9:16:26 HR=76 bpm, VFSL=245/78 mmhg, SpO2=95.0 %, Resp=16 B/min, Zaldivar=2 9:16:29 Catheter was removed OTW Assessment: Final Case, HR=68 BPM, Rhythm=sr, YKKD=320/78 mmhg, Chest Pain=0, Edema=None, Color =Normal, Skin = Warm, Dry 9:19:12 Right Pulses: Lan Ped=3, Femoral=3, Radial=3 Neurological: State=Alert, Ox3, OVIEDO Respiration: Resp=18 B/min, SpO2=96 %, O2=2 lpm 9:20:10 Catheter(s) removed without difficulty 9:21:27 HR=67 bpm, PWUO=804/76 mmhg, SpO2=96.0 %, Resp=16 B/min, Zaldivar=2 9:24:37 Case End Radial Compression Device Used. 12 mLs of air placed in BAND, RADIAL COMPRESSION TR SHORT 24 24 CM. Affected 9:24:46 hand 92 % O2 saturation. 9:25:34 No case complications noted. 9:25:36 Cine recording checked. 9:25:44 Contrast Scanned 9:25:52 A Left Heart Cath was performed. 9:26:22 Patient moved to stretcher 9:26:27 Vitals capture stopped. 9:27:50 Patient moved to stretcher End Study - Contrast Media Used In Study Contrast Total Opened (mL) Total Used (mL) Total Wasted (mL) Omnipaque 90 90 0 End Study - Maximum Contrast Load Max Contrast Load (mL) 593.2 End Study - Radiation Exposure Fluoro Time (minutes) 3.6 End Study - Patient Disposition Complications Transferred To Telemetry Bed
[2017-05-17] MEDS ORDERED: CHLORHEXIDINE GLUCONATE 4% SOLN 120 ML BTL TOPICAL SCH (10:45)
[2017-05-17] MEDS ORDERED: PAPAVERINE INJ 60 MG, NITROGLYCERIN INJ 100 MCG, DILTIAZEM INJ 100 MG in SODIUM CHLORID... IRRIGATION SCH (10:45)
[2017-05-17] MEDS ORDERED: CEFAZOLIN INJ 500 MG in SODIUM CHLORIDE 0.9% IRR BTL 500 ML IRRIGATION SCH (10:45)
[2017-05-17] MEDS ORDERED: ceFAZolin 2 GM PREMIX 50 ML IV SCH (10:45)
[2017-05-17] MEDS ORDERED: INSULIN REGULAR (IV INFUSION) 100 UNITS in SODIUM CHLORIDE 0.9% INJ 100 ML IV SCH (10:45)
[2017-05-17] MEDS ORDERED: SODIUM CHLORIDE 0.9% FLUSH 10 ML FLUSH IV FLUSH PRN (10:45)
[2017-05-17] MEDS ORDERED: METOPROLOL TARTRATE 25 MG TAB PO SCH (10:45)
--- NOTE | 2017-05-17 11:16 | MA ---
cc: LEONELANELLYHOUSTON DATE: 05/17/2017 PROCEDURES PERFORMED 1. Cardiac fluoroscopy with interpretation. 2. Left heart catheterization. 3. Left ventriculography. 4. Coronary angiography. 5. Left upper extremity angiography. METHOD Risks, benefits and alternatives were discussed with the patient, the patient understood and consented to the procedure. The patient was brought to the catheterization lab and placed on the catheterization table. Right wrist was prepped and draped in sterile fashion. Right wrist was anesthetized with 2% lidocaine. Right radial artery was cannulated and a 6-Latvian 7 cm sheath was placed without difficulty. LEFT HEART CATHETERIZATION A 6-Latvian angled pigtail catheter was advanced across the aortic valve without difficulty. Intraventricular hemodynamics measured at 110/11 mmHg. Left end-diastolic pressure 10 mmHg. No significant aortic stenosis by transaortic valve or pullback gradient. LEFT VENTRICULOGRAPHY Left ventriculography was performed in right anterior oblique view using a 6-Latvian angled pigtail catheter and a 30 cc contrast injection showing good opacification. Left ventricular ejection fraction visually estimated at 45%. There is regional anterior, anterolateral hypokinesis. No significant mitral regurgitation noted. CORONARY ANGIOGRAPHY Left coronary circulation was selectively engaged with 6-Latvian JL-3.5 catheter. Right coronary circulation was selectively engaged with 6-Latvian JR-5 catheter. CORONARY ANATOMY 1. Distal left main coronary has heavy calcium present with 90% stenosis. 2. Left anterior descending coronary has heavy calcium present with a 95% stenosis present. The proximal to mid left anterior descending gives rise to a smaller diagonal branch, has minor luminal irregularities. In the mid segment there is a 75% stenosis and then in the apex of the LAD itself and also has moderate diffuse disease. 3. Left circumflex gives rise to a very large first obtuse marginal branch, sub-branch, has minor luminal irregularities throughout the mid and distal segment with ostial 90% stenosis in the circumflex. 4. Right coronary is a dominant vessel giving rise to a posterior descending coronary. Right coronary mid segment has a 50% stenosis, there is otherwise minor luminal irregularities and moderate calcium present. LEFT UPPER EXTREMITY ANGIOGRAPHY Left subclavian artery was selectively engaged with a 6-Latvian JL-3.5 catheter to assess for suitability of the left internal mammary as a graft conduit (left internal mammary is widely patent, left subclavian although tortuous widely patent). CONCLUSION 1. Severe left main and three-vessel coronary artery disease. 2. Mild to moderately reduced left ventricular systolic function with regional wall motion abnormalities. 3. Normal left-sided filling pressure. 4. Widely patent left internal mammary artery. PLAN Monitor the patient closely for any post procedural complications, symptomatically and hemodynamically, he is doing very well. Will consult cardiothoracic surgery for consideration of bypass surgery, probably would keep him here in the hospital and hopefully get the surgery done soon given the severity of his left main. MD ARLETTE Chin/MAY /9:32 AM /10:52 AM
--- NOTE | 2017-05-17 12:43 | RADRPT ---
EXAM DATE/TIME: 05/17/2017 11:05 [facility] COMPARISON: No previous studies available for comparison. INDICATIONS : Preop heart surgery. MEDICAL HISTORY : Hypertension. GERD. Myasthenia Gravis. SURGICAL HISTORY : Tonsillectomy. Appendectomy. Right knee replacement. Cardiac catheterization. ENCOUNTER: Initial ACUITY: 1 day PAIN SCORE: 1/10 LOCATION: Bilateral neck PEAK SYSTOLIC VELOCITIES (cm/sec): ICA/CCA RATIO: Right: 1.1 Left: 1.0 ICA: Right: 104 Left: 97 CCA: Right: 92 Left: 94 ECA: Right: 107 Left: 73 VERTEBRAL: Right: 52 antegrade Left: 71 antegrade Elevated flow velocities and ICA/CCA ratios have been found to correlate with increased degrees of vessel stenosis, calculated as percentage of diameter relative to a normal segment of distal ICA/CCA FINDINGS: RIGHT CAROTID: Mild calcified plaque. No significant stenosis is visualized. The waveforms are within normal limits . LEFT CAROTID: Minimal plaque. No significant stenosis is visualized. The waveforms are within normal limits. VERTEBRAL ARTERIES: Antegrade flow is seen in both vertebral arteries. MISCELLANEOUS: None. CONCLUSION: 1. Mild carotid plaque without significant flow-limiting stenosis. 2. Antegrade vertebral artery flow bilaterally. Chandra Brown MD on May 17, 2017 at 12:38 Board Certified Radiologist. This report was verified electronically.
--- NOTE | 2017-05-17 12:46 | RADRPT ---
EXAM DATE/TIME: 05/17/2017 11:22 [facility] COMPARISON: No previous studies available for comparison. INDICATIONS : Pre op cardiac surgery. MEDICAL HISTORY : Hypertension. GERD. Myasthenia Gravis. SURGICAL HISTORY : Tonsillectomy. Appendectomy. Right knee replacement. Cardiac catheterization. ENCOUNTER: Initial ACUITY: 1 day PAIN SCORE: 2/10 LOCATION: Bilateral legs. GREATER SAPHENOUS VEIN THIGH: PROXIMAL: Right 6 mm Left 7 mm MID: Right 6 mm Left 5 mm DISTAL: Right 5 mm Left 6 mm CALF: PROXIMAL: Right 4 mm Left 4 mm MID: Right 3 mm Left 3 mm DISTAL: Right 3 mm Left 3 mm FINDINGS: The venous system of the lower extremities are patent by color Doppler imaging. Measurements of the leg veins (in mm) are listed above. CONCLUSION: 1. Lower extremity venous mapping, as above. Chandra Brown MD on May 17, 2017 at 12:44 Board Certified Radiologist. This report was verified electronically.
--- NOTE | 2017-05-17 12:46 | RADRPT ---
EXAM DATE/TIME: 05/17/2017 11:16 [facility] COMPARISON: No previous studies available for comparison. INDICATIONS : Preop heart surgery. MEDICAL HISTORY : Hypertension. GERD. Myasthenia Gravis. SURGICAL HISTORY : Tonsillectomy. Appendectomy. Right knee replacement. Cardiac catheterization. ENCOUNTER: Initial ACUITY: 1 day PAIN SCORE: 2/10 LOCATION: Bilateral leg. TECHNIQUE: Venous ultrasound of the left and right leg was performed from the inguinal ligament to the proximal calf. Real-time, color Doppler and spectral tracing, compression and augmentation techniques were us ed. FINDINGS: RIGHT LEG: There is normal compressibility of the deep venous system from the inguinal region to the proximal ca lf. No echogenic clot is seen in the lumen of the common femoral, femoral, popliteal, and posterior tibial veins. There is a normal response of the venous system to proximal and distal augmentation an d respiration. LEFT LEG: There is occlusive thrombus in the left peroneal and posterior tibial veins. The popliteal vein is pa tent. There is normal compressibility of the deep venous system from the inguinal region to the popli teal vein. No echogenic clot is seen in the lumen of the common femoral, femoral, and popliteal vein s. There is a normal response of the venous system to proximal and distal augmentation and respirati on. CONCLUSION: 1. Left calf vein DVT (peroneal and posterior tibial veins). 2. No sonographic evidence for right lower extremity DVT. Chandra Brown MD on May 17, 2017 at 12:42 Board Certified Radiologist. This report was verified electronically.
[2017-05-17 13:04] LABS: BLOOD, URINE NEG (NEG); GLUCOSE,URINE NEG (NEG); KETONE, URINE NEG (NEG); NITRITE,URINE NEG (NEG); URINE COLOR YELLOW (YELLW/STRAW)
[2017-05-17 13:06] LABS: COMMENT (UR) CULT NOT INDICATED; CULTURE IF INDICATED CULT NOT INDICATED
[2017-05-17 13:12] LABS: AUTOMATED NEUTROPHIL # 7.9 TH/MM3 (1.8-7.7); BASOPHIL % 0.2 % (0.0-2.0); EOSINOPHIL % 0.1 % (0.0-4.0); HEMATOCRIT 34.8 % (39.0-51.0); LYMPH % 16.4 % (9.0-44.0); LYMPHOCYTE # 1.6 TH/MM3 (1.0-4.8); MEAN CELL VOLUME 92.8 FL (80.0-100.0); MEAN CORPUSCULAR HEMOGLOBIN 29.7 PG (27.0-34.0); MEAN CORPUSCULAR HGB CONC 32.1 % (32.0-36.0); MONO % 2.1 % (0.0-8.0); NEUT % 81.2 % (16.0-70.0); PLATELET COUNT 277 TH/MM3 (150-450); RED BLOOD COUNT 3.75 MIL/MM3 (4.50-5.90); RED CELL DISTRIBUTION WIDTH 13.6 % (11.6-17.2); WHITE BLOOD COUNT 9.7 TH/MM3 (4.0-11.0)
[2017-05-17 13:13] LABS: HEMO FLAGS AUTO DIFF
[2017-05-17 13:14] LABS: PROTHROMBIN TIME - PATIENT 11.5 SEC (9.8-11.6)
--- NOTE | 2017-05-17 13:32 | RADRPT ---
EXAM DATE/TIME: 05/17/2017 13:09 [facility] COMPARISON: CHEST PA & LAT, April 05, 2016, 14:14. INDICATIONS : Evaluate for pneumonia, pneumothorax or communicable disease. Pre op CABG. MEDICAL HISTORY : Hypertension. Hypercholesterolemia. SURGICAL HISTORY : None. ENCOUNTER: Initial ACUITY: 1 day PAIN SCORE: 0/10 LOCATION: Bilateral cranial FINDINGS: PA and lateral views of the chest demonstrate the lungs to be symmetrically aerated without evidence of mass, infiltrate or effusion. Previously noted nodular opacity in the left lung is not demonstrate d on current study. The cardiomediastinal contours are unremarkable. Osseous structures are intact. CONCLUSION: 1. No acute cardiopulmonary disease. Chandra Brown MD on May 17, 2017 at 13:30 Board Certified Radiologist. This report was verified electronically.
[2017-05-17 13:33] LABS: ANION GAP 6 MEQ/L (5-15); AST (GOT) 11 U/L (15-37); BICARBONATE 26.7 MEQ/L (21.0-32.0); BLOOD UREA NITROGEN 14 MG/DL (7-18); CHLORIDE 107 MEQ/L (98-107); GLOMERULAR FILTRATION RATE 74 ML/MIN (>89); POTASSIUM 4.1 MEQ/L (3.5-5.1); SODIUM (NA) 140 MEQ/L (136-145)
[2017-05-17 13:47] LABS: ALKALINE PHOSPHATASE 44 U/L (45-117); ALT (GPT) 27 U/L (12-78)
[2017-05-17 14:24] LABS: TOTAL BILIRUBIN ADULT 0.3 MG/DL (0.2-1.0)
[2017-05-17 14:25] LABS: MYELOCYTES 1 % (0-0); NEUTROPHIL # MANUAL DIFF 8.1 TH/MM3 (1.8-7.7); PLATELET ESTIMATE SMEAR NORMAL (NORMAL); PLATELET MORPHOLOGY NORMAL (NORMAL); POLYS (SEG NEUTROPHILS) 82 % (16-70); SCAN/DIFF FINAL DIFF MANUAL; WBC DIFF SAMPLE 100
--- NOTE | 2017-05-17 15:00 | PD.CAR.PN ---
CVT Progress Note Subjective/Hospital Course: sts data discussed with pt RISK SCORES About the STS Risk Calculator Procedure: CAB Only Risk of Mortality: 0.713% Morbidity or Mortality: 8% Long Length of Stay: 2.38% Short Length of Stay: 60.828% Permanent Stroke: 0.733% Prolonged Ventilation: 5.042% DSW Infection: 0.225% Renal Failure: 1.623% Reoperation: 3.605% Objective: Vital Signs Date Time Temp Pulse Resp B/P (MAP) Pulse Ox O2 Delivery O2 Flow Rate FiO2 05/17/17 14:00 82 05/17/17 08:06 98.3 86 17 128/88 (101) 96 Labs: Laboratory Tests Test 05/17/17 10:55 05/17/17 12:25 Urine Color YELLOW (YELLW/STRAW) Urine Turbidity CLEAR (CLEAR) Urine pH 7.0 (5.0-8.5) Urine Specific [place] GREATER THAN 1.050 Urine Protein NEG mg/dL (NEG-TRACE) Urine Glucose (UA) NEG mg/dL (NEG) Urine Ketones NEG mg/dL (NEG) Urine Occult Blood NEG (NEG) Urine Nitrite NEG (NEG) Urine Bilirubin NEG (NEG) Urine Urobilinogen LESS THAN 2.0 MG/DL (LESS Urine Leukocyte Esterase NEG (NEG) Urine RBC LESS THAN 1 /hpf (0-3) Urine WBC LESS THAN 1 /hpf (0-5) Microscopic Urinalysis Comment CULT NOT INDICATED White Blood Count 9.7 TH/MM3 (4.0-11.0) Red Blood Count 3.75 MIL/MM3 (4.50-5.90) Hemoglobin 11.2 GM/DL (13.0-17.0) Hematocrit 34.8 % (39.0-51.0) Mean Corpuscular Volume 92.8 FL (80.0-100.0) Mean Corpuscular Hemoglobin 29.7 PG (27.0-34.0) Mean Corpuscular Hemoglobin Concent 32.1 % (32.0-36.0) Red Cell Distribution Width 13.6 % (11.6-17.2) Platelet Count 277 TH/MM3 (150-450) Mean Platelet Volume 8.0 FL (7.0-11.0) Neutrophils (%) (Auto) 81.2 % (16.0-70.0) Lymphocytes (%) (Auto) 16.4 % (9.0-44.0) Monocytes (%) (Auto) 2.1 % (0.0-8.0) Eosinophils (%) (Auto) 0.1 % (0.0-4.0) Basophils (%) (Auto) 0.2 % (0.0-2.0) Neutrophils # (Auto) 7.9 TH/MM3 (1.8-7.7) Lymphocytes # (Auto) 1.6 TH/MM3 (1.0-4.8) Monocytes # (Auto) 0.2 TH/MM3 (0-0.9) Eosinophils # (Auto) 0.0 TH/MM3 (0-0.4) Basophils # (Auto) 0.0 TH/MM3 (0-0.2) CBC Comment AUTO DIFF Differential Total Cells Counted 100 Neutrophils % (Manual) 82 % (16-70) Lymphocytes % 15 % (9-44) Monocytes % 2 % (0-8) Neutrophils # (Manual) 8.1 TH/MM3 (1.8-7.7) Myelocytes 1 % (0-0) Differential Comment FINAL DIFF MANUAL Platelet Estimate NORMAL (NORMAL) Platelet Morphology Comment NORMAL (NORMAL) Red Cell Morphology Comment NORMAL (NORMAL) Prothrombin Time 11.5 SEC (9.8-11.6) Prothromb Time International Ratio 1.0 RATIO Blood Urea Nitrogen 14 MG/DL (7-18) Creatinine 1.00 MG/DL (0.60-1.30) Random Glucose 173 MG/DL (74-106) Total Protein 6.3 GM/DL (6.4-8.2) Albumin 3.5 GM/DL (3.4-5.0) Calcium Level 8.6 MG/DL (8.5-10.1) Alkaline Phosphatase 44 U/L (45-117) Aspartate Amino Transf (AST/SGOT) 11 U/L (15-37) Alanine Aminotransferase (ALT/SGPT) 27 U/L (12-78) Total Bilirubin 0.3 MG/DL (0.2-1.0) Sodium Level 140 MEQ/L (136-145) Potassium Level 4.1 MEQ/L (3.5-5.1) Chloride Level 107 MEQ/L (98-107) Carbon Dioxide Level 26.7 MEQ/L (21.0-32.0) Anion Gap 6 MEQ/L (5-15) Estimat Glomerular Filtration Rate 74 ML/MIN (>89) Result Diagram: 05/17/17 1225 05/17/17 1225 Angela Shipley May 17, 2017 15:00
[2017-05-17] MEDS ORDERED: PILL SPLITTER OTHER PRN (16:45)
--- NOTE | 2017-05-17 16:55 | MB ---
cc: SOCRATES MEDRANO MD DATE OF CONSULTATION 05/17/17 1948 HISTORY OF PRESENT ILLNESS This is a 67-year-old male patient of Dr. Porter Stock and Dr. Freddy Nunn who has had some episodes of indigestion and chest discomfort. He thought it was indigestion. He was taking ymci-qsy-[id number] medication. Also some fatigue with some heaviness in both of his arms off and on for about six months more noticeable with exertion. Then he had an episode that lasted a little bit longer two weeks ago. He underwent exercise nuclear stress test which apparently was positive and then presented for outpatient cardiac cath by Dr. Nunn. Cardiac cath today revealed and ejection fraction of 45%, 90% left main stenosis, proximal LAD 90%, mid distal LAD 75%, diagonal 20%, circumflex 90%. OM 20% and the RCA 50%. We were consulted to evaluate for coronary artery bypass grafting. PAST MEDICAL HISTORY 1. Hypertension, 2. Hyperlipidemia, 3. Coronary artery disease 4. Anxiety, 6. Degenerative disk disease, 7. Esophageal reflux 8. Myasthenia gravis that he was diagnosed with 13 years ago, is followed by Dr. Avila in [facility] neurolog[facility], has been on Mestinon and apparently prednisone 9. Obesity. 10. Osteoarthritis, 11. Type 2 diabetes mellitus. PAST SURGICAL HISTORY 1. Cataract extraction left eye, blepharoplasty bilateral lids. He has had actually both cataracts done on the right, January 2017, left February 1017. 2. Complete colonoscopy 3. History of dermatologic cryotherapy 4. He has had epidural injections for chronic back pain 5. Left knee arthroscopy knee with medial meniscotomy. 6. Right knee surgery in . 7. He has had some lumbar surgery, 8. Tonsillectomy, 9. Left total knee arthroscopy 10. Right total knee replacement ALLERGIES ATORVASTATIN. MEDICATIONS home include 1. Amlodipine. 2. Baclofen 10 mg t.i.d. with meals. 3. Benazepril 40 mg daily. 4. Flexeril t.i.d. p.r.n. as needed. 5. Fenofibrate 145 p.o. daily 6. Gabapentin 300 b.i.d. 7. [place] p.r.n. for pain. 8. Mag oxide 400 p.o. daily. 9. Pravachol 40 daily, 10. Prednisone 5 mg daily, 11. Pyridostigmine 60 mg 1 tablet 12. Multiple bxbp-svx-qyznjha medications sand herbals FAMILY HISTORY Mother at age 49 from breast cancer. Father in his 80s with dementia. SOCIAL HISTORY The patient , two children, worked at [employer]. No tobacco or alcohol. REVIEW OF SYSTEMS GENERAL: No night sweats, fever, heat and cold intolerance. SKIN: No psoriasis, itching or hives. HEENT: No blurred vision, hearing loss. RESPIRATORY: Positive for shortness of breath. No cough. CARDIOVASCULAR: As above in HPI. GASTROINTESTINAL: No diarrhea, vomiting. GENITOURINARY:: No burning, frequency, urgency TELEGRAPH OFFICE MANAGER: No history of TIA, CVA, seizure disorder. ENDOCRINE: Positive for diabetes mellitus. No hypothyroidism. PHYSICAL EXAMINATION VITAL SIGNS: Blood pressure 128/80, heart rate of 86, afebrile. Patient is awake, alert in no acute distress. HEENT: Head is normocephalic, atraumatic. Pupils equal and reactive. Oral mucosa pink, moist. NECK: Supple. No JVD. CARDIAC: Heart sounds S1-S2, regular rate and rhythm. No rubs, murmurs, gallops. LUNGS: Clear to auscultation. No wheezes, rales or rhonchi. ABDOMEN: Soft, nontender. No masses or organomegaly. EXTREMITIES: No cyanosis, clubbing or edema. LABORATORY FINDINGS Hemoglobin of 11, hematocrit of 34, white cell count 9.7, platelet count 277. Sodium 140, potassium 4.1, BUN of 14, creatinine 1.0, glucose 173, AST 11, ALT 27, INR 1.0. Urinalysis unremarkable. MRSA screen pending. IMAGING STUDIES Unremarkable carotid ultrasound, no evidence of hemodynamically significant stenosis, some minimal plaque. He did have an ultrasound of the lower extremities which did show an occlusive thrombus in the left peroneal and posterior tibial vein. The popliteal vein is patent. Chest x-ray unremarkable. IMPRESSION This is a 67-year-old male admitted with unstable angina, underwent cardiac cath with multivessel disease including a 90% left main, 45% ejection fraction. Cardiac films have been reviewed by Dr. Socrates Medrano and patient is planned for coronary artery bypass graft x3 in the a.m. Procedure, alternatives and risks have been discussed with the patient. He is agreeable to proceed. The patient also has a DVT in his left peroneal and posterior tibial vein. He will need to have anticoagulation postoperatively once he is stabilized and his chest tubes are out. Further planning per Dr. Socrates Medrano. ADDENDUM ASSESSMENT AND PLAN: The patient also has history of myasthenia gravis but is followed by a neurologist, Dr. Avila in [facility]. He is to continue the Mestinon and low-dose Prednisone and the patient also will be planned for thymectomy during his surgery tomorrow. Dictated by MARYANN Gee Socrates WILSON/ /3:03 PM /7:28 AM
[2017-05-17 17:10] LABS: HEMOGLOBIN A1a 0.7 %; HEMOGLOBIN A1b 1.9 %; HEMOGLOBIN Ao 84.9 %; HEMOGLOBIN LA1C 2.4 %; HEMOGLOBIN P3 4.2 %
[2017-05-17] MEDS: BACLOFEN 10 MG TAB PO SCH (18:50)
[2017-05-17] MEDS: PYRIDOSTIGMINE BROMIDE 60 MG TAB PO SCH (18:50)
[2017-05-17] MEDS: SODIUM CHLORIDE 0.9% FLUSH 10 ML FLUSH IV FLUSH SCH (21:00)
[2017-05-17] MEDS: METOPROLOL TARTRATE 25 MG TAB PO SCH (21:24)
[2017-05-17] MEDS: FENOFIBRATE 145 MG TAB PO SCH (21:24)
[2017-05-18] VITALS (21 sets, daily range): BP systolic 99–137; BP diastolic 54–84; PULSE 66–124; RESP 17–22; TEMP 98–98.6; O2SAT 92–97
[2017-05-18] MEDS ORDERED: ARTIFICIAL TEARS OPTH OINT 3.5 APPLIC/3.5 GM TUBO ONE (05:00)
[2017-05-18] MEDS ORDERED: AMINOCAPROIC ACID INJ 250 MG/ML 20 ML VIAL IV ONE ×2 (05:00→09:26)
[2017-05-18] MEDS ORDERED: HEPARIN SODIUM - SQ 10,000 UNITS/ML VIAL SQ ONE (05:00)
[2017-05-18] MEDS ORDERED: PROPOFOL 1000 MG/100 ML INJ 100 ML IV ONE (05:00)
[2017-05-18] MEDS ORDERED: METOPROLOL TARTRATE 5 MG/5 ML VIAL IV PUSH ONE (05:00)
[2017-05-18] MEDS ORDERED: MAGNESIUM SULFATE 1000 MG/2 ML VIAL (PED) IV ONE (05:00)
[2017-05-18] MEDS ORDERED: CALCIUM GLUCONATE 10% 1 GM/10 ML VIAL IV ONE (05:00)
[2017-05-18] MEDS ORDERED: PROTAMINE SULFATE 250 MG/25 ML VIAL IV ONE ×2 (05:00→09:26)
[2017-05-18] MEDS: METOPROLOL TARTRATE 25 MG TAB PO SCH ×2 (05:39→20:27)
[2017-05-18] MEDS ORDERED: ceFAZolin 2 GM PREMIX 50 ML ONE (06:35)
[2017-05-18] MEDS ORDERED: VANCOMYCIN HCL 1000 MG VIAL ONE (06:35)
[2017-05-18] MEDS ORDERED: HEPARIN SODIUM - SQ 10,000 UNITS/ML VIAL ONE (06:35)
[2017-05-18] MEDS ORDERED: SUGAMMADEX SODIUM 200 MG/2 ML VIAL IV PUSH ONE ×4 (06:43→12:37)
[2017-05-18 06:49] LABS: AUTOMATED NEUTROPHIL # 6.6 TH/MM3 (1.8-7.7); BASOPHIL # 0.1 TH/MM3 (0-0.2); BASOPHIL % 0.6 % (0.0-2.0); EOSINOPHIL # 0.1 TH/MM3 (0-0.4); EOSINOPHIL % 0.7 % (0.0-4.0); HEMATOCRIT 37.7 % (39.0-51.0); HEMO FLAGS DIFF FINAL; LYMPH % 33.5 % (9.0-44.0); LYMPHOCYTE # 3.7 TH/MM3 (1.0-4.8); MEAN CELL VOLUME 93.1 FL (80.0-100.0); MEAN CORPUSCULAR HEMOGLOBIN 30.3 PG (27.0-34.0); MEAN CORPUSCULAR HGB CONC 32.6 % (32.0-36.0); MONO % 5.5 % (0.0-8.0); NEUT % 59.7 % (16.0-70.0); PLATELET COUNT 311 TH/MM3 (150-450); RED BLOOD COUNT 4.05 MIL/MM3 (4.50-5.90); RED CELL DISTRIBUTION WIDTH 13.8 % (11.6-17.2); WHITE BLOOD COUNT 11.1 TH/MM3 (4.0-11.0)
[2017-05-18 07:13] LABS: BICARBONATE 29.7 MEQ/L (21.0-32.0); POTASSIUM 3.9 MEQ/L (3.5-5.1)
[2017-05-18] MEDS ORDERED: methylPREDNISolone SOD SUCC 125 MG/2 ML VIAL ONE (08:20)
[2017-05-18] MEDS ORDERED: CHLORHEXIDINE GLUCONATE 2 % 1 PACK (2 CLOTHS) TOPICAL ONE (08:51)
[2017-05-18] MEDS ORDERED: PANTOPRAZOLE SOD 20 MG DELAYED RELEASE TAB PO SCH (09:00)
[2017-05-18] MEDS: amLODIPine BESYLATE 5 MG TAB PO SCH (09:00)
[2017-05-18] MEDS ORDERED: HEPARIN SODIUM - IV 2,000 UNITS/2 ML VIAL IV ONE (09:26)
[2017-05-18] MEDS ORDERED: LACTATED RINGER'S 1000 ML INJ 2,000 ML IV ONE (09:26)
[2017-05-18] MEDS ORDERED: VECURONIUM BROMIDE 20 MG VIAL IV ONE (09:26)
[2017-05-18] MEDS ORDERED: PROPOFOL 200 MG/20 ML AMP IV ONE (09:26)
[2017-05-18] MEDS ORDERED: ceFAZolin INJ 1,000 MG VIAL ONE ×2 (11:23→11:28)
[2017-05-18] MEDS ORDERED: POTASSIUM CHLOR 40 MEQ PREMIX 100 ML ONE (11:26)
--- NOTE | 2017-05-18 11:43 | EKG ---
Date Performed: 05/18/2017 Time Performed: 05:58:40 PTAGE: 67 years EKG: Sinus rhythm Leftward axis Ant/septal and lateral T wave changes may be due to myocardial ischemia Abnormal ECG C ompared to prior tracing no significant change PREVIOUS TRACING : 04/05/2016 13.56 DOCTOR: Clinton Delaney Interpretating Date/Time 05/18/2017 11:41:07
[2017-05-18] MEDS ORDERED: PHENYLEPHRINE INJ 40 MG in DEXTROSE 5% IN WATE 500 ML INJ 496 ML IV PRN ×2 (11:51)
[2017-05-18] MEDS ORDERED: DEXMEDETOMIDINE INJ 200 MCG in SODIUM CHLORIDE 0.9% INJ 50 ML IV PRN (11:51)
[2017-05-18] MEDS ORDERED: DOPamine INJ PREMIX 500 ML IV PRN (11:51)
[2017-05-18] MEDS ORDERED: NITROGLYCERIN-D5W 50 MG/250 ML 250 ML IV PRN (11:51)
[2017-05-18] MEDS ORDERED: LACTATED RINGER'S 1000 ML INJ 500 ML IV PRN (11:51)
[2017-05-18] MEDS ORDERED: DOBUTamine PREMIX DRIP 250 ML IV SCH (11:51)
[2017-05-18] MEDS ORDERED: CLEVIDIPINE INJ 50 ML IV PRN (11:51)
[2017-05-18] MEDS ORDERED: RESP: RACEPINEPHRINE 2.25% 0.5 ML NEB NEB PRN (12:00)
[2017-05-18] MEDS ORDERED: CALCIUM CHLORIDE 10% 1 GRAM/10 ML VIAL IV PRN (12:00)
[2017-05-18] MEDS ORDERED: MAGNESIUM SULFATE INJ 2 GM in SODIUM CHLORIDE 0.9% INJ 100 ML IV PRN ×4 (12:00)
[2017-05-18] MEDS ORDERED: POTASSIUM CHLORIDE 20 MEQ CONTROLLED RELEASE TAB PO PRN ×2 (12:00)
[2017-05-18] MEDS ORDERED: SODIUM CHLORIDE 0.9% FLUSH 10 ML FLUSH IV FLUSH SCH (12:00)
[2017-05-18] MEDS ORDERED: CALCIUM CHLORIDE INJ 1 GM in SODIUM CHLORIDE 0.9% INJ 100 ML IV PRN (12:00)
[2017-05-18] MEDS ORDERED: DEXTROSE 50% IN WATER 50 ML VIAL(D50) IV PUSH PRN (12:00)
[2017-05-18] MEDS ORDERED: POTASSIUM CHLOR 20 MEQ PREMIX 100 ML IV PRN ×3 (12:00)
[2017-05-18] MEDS ORDERED: hydrALAZINE HCL 20 MG/ML VIAL IV PRN (12:00)
[2017-05-18] MEDS ORDERED: SODIUM CHLORIDE 0.9% FLUSH 10 ML FLUSH IV FLUSH PRN (12:00)
[2017-05-18] MEDS ORDERED: ACETAMINOPHEN 650 MG SUPP RECTAL PRN (12:00)
[2017-05-18] MEDS ORDERED: MEPERIDINE HCL 25 MG/ML VIAL IV PRN (12:00)
[2017-05-18] MEDS ORDERED: ACETAMINOPHEN 325 MG TAB PO PRN (12:00)
[2017-05-18] MEDS ORDERED: ALBUMIN HUMAN 5% 12.5 GM/250 ML BOTTLE IV PRN (12:00)
[2017-05-18] MEDS ORDERED: ONDANSETRON HCL 4 MG/2 ML VIAL IV PUSH PRN (12:00)
[2017-05-18] MEDS ORDERED: RESP: ALBUTEROL 2.5 MG/IPRATROPIUM 0.5 MG NEB (PRN) NEB (12:00)
[2017-05-18] MEDS ORDERED: Post-op Orders (for Pharmacy) MISC OTHER ONE (12:00)
[2017-05-18] MEDS ORDERED: fentaNYL CITRATE 1000 MCG/20 ML VIAL ONE (12:48)
[2017-05-18] MEDS ORDERED: MIDAZOLAM HCL 5 MG/5 ML VIAL ONE ×2 (12:48)
--- NOTE | 2017-05-18 13:24 | RADRPT ---
EXAM DATE/TIME: 05/18/2017 12:41 [facility] COMPARISON: CHEST PA & LAT, May 17, 2017, 13:09. INDICATIONS : Post op CABG. MEDICAL HISTORY : Hypertension. Hypercholesterolemia SURGICAL HISTORY : None. ENCOUNTER: Initial ACUITY: 1 day PAIN SCORE: Non-responsive. LOCATION: Bilateral upper chest FINDINGS: Portable AP view of the chest demonstrates a normal-sized cardiac silhouette in this patient post rec ent median sternotomy. Endotracheal tube is present with distal tip measuring 5.5 cm from the heber. Nasogastric tube courses beyond the GE junction. Mediastinal drain and left chest tube are present a nd no pneumothorax is visualized. A right IJ line distal tip is in the SVC. Lungs are very underinfla brendon with atelectasis at the bases and there is a left basilar/retrocardiac airspace opacity. CONCLUSION: 1. Marked underinflation with left lower lobe airspace opacity representing atelectasis or airspace c onsolidation. 2. Otherwise, expected changes following recent CABG. No pneumothorax is visualized. Rodney Anton MD on May 18, 2017 at 13:19 Board Certified Radiologist. This report was verified electronically.
--- NOTE | 2017-05-18 13:30 | PD.OP ---
cc: Lupillo Valdivia MD; Hermann Nunn MD Operative Report Date of Surgery: May 18, 2017 Preoperative Diagnosis: Postoperative Diagnosis: Procedure: 1. Urgent Off-pump Coronary Artery Bypass Grafting x 4 with Left Internal Mammary Artery (NAPIER) to Left Anterior Descending (LAD), reverse saphenous vein graft to OM1, reverse saphenous vein graft to the RCA 2. Trans-sternal Total Thymectomy 3. Right Leg Endoscopic Vein [place] 4. Intraoperative Vein Mapping. Surgeon: Lupillo Valdivia Cable Supervisor(s): Rodney Chaudhry Operation and Findings: PREPROCEDURE DIAGNOSES 1. Severe Multi Vessel Coronary Artery Disease. 2. Moderate Left Ventricular Dysfunction (EF 40%) 3. Myasthenia Gravis 4. Acute Deep Vein Thrombosis - Left leg 5. Critical Left Main stenosis POSTPROCEDURE DIAGNOSES Same SURGICAL PROCEDURE 1. Urgent Off-pump Coronary Artery Bypass Grafting x 4 with Left Internal Mammary Artery (NAPIER) to Left Anterior Descending (LAD), reverse saphenous vein graft to OM1, reverse saphenous vein graft to the RCA 2. Trans-sternal Total Thymectomy 3. Right Leg Endoscopic Vein [place] 4. Intraoperative Vein Mapping. SURGEON Lupillo Valdivia MD HORTICULTURAL SERVICES SUPERVISOR JIMENA Catalan ANESTHESIA General endotracheal AERIAL ERECTOR ALISON Jones MD PREPARATION ChloraPrep. COUNTS Needle, sponge, and instrument counts were correct. DRAINS Two 32-[place] mediastinal tubes. COMPLICATIONS None. INDICATIONS FOR PROCEDURE The patient is a 67-year-old presenting with chest pain. Patient was noted to have severe multi-vessel coronary artery disease with left main stenosis. The patient is being brought to the operating room for surgical revascularization therapy. PROCEDURE Patient was brought to the operating room and placed supine on the OR table. Following the induction of adequate general endotracheal anesthesia and placement of appropriate monitoring devices, intraoperative vein mapping was performed which revealed -caliber conduit in bilateral lower extremities. The patient was then prepped and draped in standard sterile fashion. Next, 2500 units of intravenous heparin was given. The right greater saphenous vein was harvested endoscopically. This appeared to be a useable-caliber conduit. Simultaneously, a median sternotomy was performed and the left internal mammary artery dissected free off the posterior sternal table. The patient was systemically heparinized and anticoagulation monitored by serial ACT measurements. The internal mammary artery had good pulsatile flow in it and was a good-caliber conduit. A total thymectomy was performed from the diaphragmatic surface to the thyrothymic ligament. Care was taken to retract the thymic horns and remove with the specimen. Laterally, the dissection was taken to just medial of the phrenic nerves, again care being taken to avoid traction or injury to the nerve bundles. The specimen was removed and sent for histological analysis. The pericardium was then divided in the midline, the cradle created and targets analyzed. At this point, all anastomoses were performed in a beating-heart fashion using the [employer] stabilizing system. The left internal mammary artery was anastomosed to the agm-et-kmsbyn LAD (1.75 mm) in an end-to-side fashion using 7-0 Prolene. Segment of saphenous vein graft was then anastomosed to the OM1 (2.25 mm) in an end-to-side fashion using 7-0 Prolene. The final segment was anastomosed to distal RCA ( 2 mm) in an end-to- side fashion using 7-0 Prolene. The proximal anastomoses were then constructed to the ascending aorta in a running manner using 6-0 Prolene. All anastomotic sites were inspected and appeared to be hemostatic and patent. Protamine solution was given. Strict hemostasis was assured. The closure was undertaken. 2 chest tubes were placed. The sternum was approximated using sternal wires. The muscular and fascial layer were then closed in 3 layers. The endoscopic vein harvest site was closed in 2 layers. The patient tolerated the procedure well and was transferred to CVICU in stable condition. Lupillo Valdivia MD May 18, 2017 13:30
[2017-05-18] MEDS: MORPHINE SULFATE 4 MG/ML INJ IV PRN ×3 (13:49→18:42)
[2017-05-18] MEDS: SODIUM CHLORIDE 0.9% FLUSH 10 ML FLUSH IV FLUSH SCH ×2 (13:52→20:27)
[2017-05-18] MEDS: ACETAMINOPHEN 1000 MG/100 ML VIAL IV SCH ×2 (14:04→20:27)
[2017-05-18] MEDS: KETOROLAC TROMETHAMINE 30 MG/ML (IVP) VIAL IV PUSH PRN (14:14)
[2017-05-18] MEDS ORDERED: INSULIN REGULAR (IV INFUSION) 100 UNITS in SODIUM CHLORIDE 0.9% INJ 99 ML IV SCH (15:00)
[2017-05-18] MEDS: RESP: ALBUTEROL 2.5 MG/IPRATROPIUM 0.5 MG NEB (SCH) NEB ×2 (16:57→21:45)
[2017-05-18] MEDS: PYRIDOSTIGMINE BROMIDE 60 MG TAB PO SCH (17:53)
[2017-05-18] MEDS: predniSONE 5 MG TAB PO SCH (17:54)
[2017-05-18] MEDS: BACLOFEN 10 MG TAB PO SCH (17:54)
[2017-05-18] MEDS: PRAVASTATIN SOD 40 MG TAB PO SCH (17:55)
[2017-05-18] MEDS: METOPROLOL TARTRATE 5 MG/5 ML VIAL IV PUSH PRN (18:49)
[2017-05-18] MEDS: AMIODARONE 200 MG TAB PO SCH (20:27)
[2017-05-18] MEDS: ceFAZolin 2 GM PREMIX 50 ML IV SCH (20:27)
[2017-05-18] MEDS: FENOFIBRATE 145 MG TAB PO SCH (21:43)
[2017-05-19] VITALS (26 sets, daily range): BP systolic 85–145; BP diastolic 56–85; PULSE 94–125; RESP 16–24; TEMP 97.6–98.7; O2SAT 92–97
[2017-05-19] MEDS ORDERED: DEXTROSE 50% IN WATER 50 ML SYRINGE ONE (00:17)
[2017-05-19] MEDS: ACETAMINOPHEN 1000 MG/100 ML VIAL IV SCH ×2 (02:19→09:00)
[2017-05-19] MEDS: RESP: ALBUTEROL 2.5 MG/IPRATROPIUM 0.5 MG NEB (SCH) NEB ×3 (04:06→21:48)
[2017-05-19] MEDS: ceFAZolin 2 GM PREMIX 50 ML IV SCH ×3 (04:33→21:20)
--- NOTE | 2017-05-19 04:50 | RADRPT ---
EXAM DATE/TIME: 05/19/2017 04:04 [facility] COMPARISON: CHEST SINGLE AP, May 18, 2017, 12:41. INDICATIONS : Shortness of breath, possible pulmonary disease. MEDICAL HISTORY : Hypertension. Hypercholesterolemia. SURGICAL HISTORY : CABG. ENCOUNTER: Subsequent ACUITY: 2 days PAIN SCORE: Non-responsive. LOCATION: Bilateral chest FINDINGS: A single view of the chest demonstrates the endotracheal tube and nasogastric tube have been removed. The mediastinal drain, left chest tube and right IJ central line are in good position. Mild atelecta sis left lung base.. The cardiomediastinal contours are unremarkable. Osseous structures are intact . CONCLUSION: Some persistent infiltrate in the left lower lobe. ET tube has been removed. Right lung is clear. Hermann Ferguson MD on May 19, 2017 at 4:48 Board Certified Radiologist. This report was verified electronically.
[2017-05-19 04:59] LABS: HEMATOCRIT 33.8 % (39.0-51.0); MEAN CELL VOLUME 91.5 FL (80.0-100.0); MEAN CORPUSCULAR HEMOGLOBIN 30.2 PG (27.0-34.0); MEAN CORPUSCULAR HGB CONC 33.1 % (32.0-36.0); PLATELET COUNT 324 TH/MM3 (150-450); RED CELL DISTRIBUTION WIDTH 13.6 % (11.6-17.2); REVIEW FLAG FINAL; WHITE BLOOD COUNT 20.5 TH/MM3 (4.0-11.0)
[2017-05-19 05:15] LABS: BICARBONATE 24.3 MEQ/L (21.0-32.0); MAGNESIUM 2.2 MG/DL (1.5-2.5); POTASSIUM 4.2 MEQ/L (3.5-5.1)
[2017-05-19] MEDS: PANTOPRAZOLE SOD 40 MG DELAYED RELEASE TAB PO SCH (06:05)
[2017-05-19] MEDS: METOPROLOL TARTRATE 5 MG/5 ML VIAL IV PUSH PRN (06:25)
[2017-05-19] MEDS: oxyCODONE/ACETAMINOPHEN 5 MG/325 MG TAB PO PRN ×4 (06:41→21:19)
[2017-05-19] MEDS: KETOROLAC TROMETHAMINE 30 MG/ML (IVP) VIAL IV PUSH PRN ×3 (09:04→22:25)
[2017-05-19] MEDS: SODIUM CHLORIDE 0.9% FLUSH 10 ML FLUSH IV FLUSH SCH ×2 (09:04→21:20)
[2017-05-19] MEDS: PRAVASTATIN SOD 40 MG TAB PO SCH (09:05)
[2017-05-19] MEDS: predniSONE 5 MG TAB PO SCH (09:05)
[2017-05-19] MEDS: AMIODARONE 200 MG TAB PO SCH ×2 (09:05→21:19)
[2017-05-19] MEDS: BACLOFEN 10 MG TAB PO SCH ×3 (09:05→17:47)
[2017-05-19] MEDS: METOPROLOL TARTRATE 25 MG TAB PO SCH ×3 (09:06→21:19)
[2017-05-19] MEDS: PYRIDOSTIGMINE BROMIDE 60 MG TAB PO SCH ×4 (09:06→21:17)
[2017-05-19] MEDS: ASPIRIN 81 MG CHEW TAB PO SCH (09:06)
[2017-05-19] MEDS: CLOPIDOGREL 75 MG TAB PO SCH (09:07)
--- NOTE | 2017-05-19 09:20 | PD.CAR.PN ---
CVT Progress Note CVT: POD #: 2 Subjective/Hospital Course: sts data discussed with pt RISK SCORES About the STS Risk Calculator Procedure: CAB Only Risk of Mortality: 0.713% Morbidity or Mortality: 8% Long Length of Stay: 2.38% Short Length of Stay: 60.828% Permanent Stroke: 0.733% Prolonged Ventilation: 5.042% DSW Infection: 0.225% Renal Failure: 1.623% Reoperation: 3.605% 05/19/17 Doing well. c/o incisional pain Objective: Vital Signs Date Time Temp Pulse Resp B/P (MAP) Pulse Ox O2 Delivery O2 Flow Rate FiO2 05/19/17 07:10 18 05/19/17 06:00 113 05/19/17 04:00 105 05/19/17 03:00 98.4 103 24 126/85 (99) 97 130/62 (84) 05/19/17 02:50 18 05/19/17 02:00 105 05/19/17 01:00 107 05/19/17 00:00 104 05/18/17 23:00 103 05/18/17 23:00 98.6 103 18 100/68 (79) 95 129/55 (79) 05/18/17 22:00 115 05/18/17 21:45 97 Nasal Cannula 3.00 05/18/17 21:00 124 05/18/17 20:00 119 05/18/17 19:00 98.6 115 22 137/84 (101) 97 123/66 (85) 05/18/17 19:00 115 05/18/17 19:00 18 05/18/17 18:00 124 05/18/17 17:00 121 05/18/17 16:00 122 05/18/17 15:30 20 05/18/17 15:00 115 05/18/17 15:00 98.3 115 17 122/81 (95) 95 127/57 (80) 05/18/17 15:00 98.3 05/18/17 14:00 104 05/18/17 13:15 40 05/18/17 13:15 93 Nasal Cannula 6.00 05/18/17 13:15 93 Nasal Cannula 6 05/18/17 13:00 95 Mechanical Ventilator 60 05/18/17 13:00 85 05/18/17 13:00 60 05/18/17 13:00 98.0 05/18/17 13:00 98.0 85 18 99/71 (80) 95 101/54 (70) 05/18/17 12:50 Nasal Cannula 45 05/18/17 12:20 92 60 Labs: Laboratory Tests Test 05/19/17 04:15 White Blood Count 20.5 TH/MM3 (4.0-11.0) Red Blood Count 3.70 MIL/MM3 (4.50-5.90) Hemoglobin 11.2 GM/DL (13.0-17.0) Hematocrit 33.8 % (39.0-51.0) Mean Corpuscular Volume 91.5 FL (80.0-100.0) Mean Corpuscular Hemoglobin 30.2 PG (27.0-34.0) Mean Corpuscular Hemoglobin Concent 33.1 % (32.0-36.0) Red Cell Distribution Width 13.6 % (11.6-17.2) Platelet Count 324 TH/MM3 (150-450) Mean Platelet Volume 8.0 FL (7.0-11.0) Blood Urea Nitrogen 16 MG/DL (7-18) Creatinine 0.91 MG/DL (0.60-1.30) Random Glucose 107 MG/DL (74-106) Calcium Level 8.5 MG/DL (8.5-10.1) Magnesium Level 2.2 MG/DL (1.5-2.5) Sodium Level 135 MEQ/L (136-145) Potassium Level 4.2 MEQ/L (3.5-5.1) Chloride Level 102 MEQ/L (98-107) Carbon Dioxide Level 24.3 MEQ/L (21.0-32.0) Anion Gap 9 MEQ/L (5-15) Estimat Glomerular Filtration Rate 83 ML/MIN (>89) Result Diagram: 05/19/17 0415 05/19/17 0415 Imaging: Last 24 hours Impressions Chest X-Ray 05/19/17 0500 Signed Impressions: Service Date/Time: Friday, May 19, 2017 04:04 - CONCLUSION: Some persistent infiltrate in the left lower lobe. ET tube has been removed. Right lung is clear. Hermann Ferguson MD Cardiovascular: RRR, tachy Telemetry: ST Pulmonary: Few crackles bilat GI/: NABS, NT Incision: dry and intact CT: 590ml since OR Plan: Transfer to stepdown Increase BB Diurese Restart ACEI Continue chest tubes Encourage ambulation Advance diet Aleida Mendoza MD May 19, 2017 09:20
[2017-05-19] MEDS: LISINOPRIL 10 MG TAB PO SCH (09:47)
[2017-05-19] MEDS: amLODIPine BESYLATE 5 MG TAB PO SCH (09:48)
[2017-05-19] MEDS: FUROSEMIDE 40 MG/4 ML VIAL IV PUSH SCH ×2 (10:53→17:47)
[2017-05-19] MEDS ORDERED: DEXTROSE 50% IN WATER 50 ML VIAL(D50) IV PUSH PRN (15:15)
[2017-05-19] MEDS ORDERED: GLUCAGON 1 MG/ML VIAL OTHER PRN (15:15)
[2017-05-19] MEDS: INDIVIDUALIZED INSULIN NOVOLOG SUPPLEMENTAL SCALE SQ SCH ×2 (15:33→20:00)
--- NOTE | 2017-05-19 15:48 | EKG ---
Date Performed: 05/19/2017 Time Performed: 04:12:48 PTAGE: 67 years EKG: Sinus tachycardia Leftward axis Inferior and lateral ST elevation Septal and lateral ST-T c hanges may be due to myocardial ischemia Abnormal ECG PREVIOUS TRACING : 05/18/2017 05.58 Compared to prior tracing no significant change DOCTOR: Pino Montgomery Interpretating Date/Time 05/19/2017 15:46:56
[2017-05-19] MEDS: FENOFIBRATE 145 MG TAB PO SCH (21:18)
[2017-05-19] MEDS: SENNOSIDES 8.6 MG TAB PO SCH (21:18)
[2017-05-19] MEDS: DOCUSATE SODIUM 100 MG CAP PO SCH (21:18)
[2017-05-20] VITALS (26 sets, daily range): BP systolic 83–122; BP diastolic 48–81; PULSE 94–129; RESP 16–20; TEMP 97.9–98.5; O2SAT 92–94
[2017-05-20] MEDS: INDIVIDUALIZED INSULIN NOVOLOG SUPPLEMENTAL SCALE SQ SCH ×4 (04:00→21:00)
[2017-05-20] MEDS: RESP: ALBUTEROL 2.5 MG/IPRATROPIUM 0.5 MG NEB (SCH) NEB ×2 (04:17→11:36)
[2017-05-20] MEDS: ceFAZolin 2 GM PREMIX 50 ML IV SCH (04:43)
[2017-05-20] MEDS: KETOROLAC TROMETHAMINE 30 MG/ML (IVP) VIAL IV PUSH PRN (04:50)
[2017-05-20] MEDS: PANTOPRAZOLE SOD 40 MG DELAYED RELEASE TAB PO SCH (04:50)
[2017-05-20 04:58] LABS: AUTOMATED NEUTROPHIL # 12.3 TH/MM3 (1.8-7.7); BASOPHIL # 0.1 TH/MM3 (0-0.2); BASOPHIL % 0.4 % (0.0-2.0); EOSINOPHIL # 0.1 TH/MM3 (0-0.4); EOSINOPHIL % 0.4 % (0.0-4.0); HEMATOCRIT 29.1 % (39.0-51.0); HEMO FLAGS DIFF FINAL; LYMPH % 21.3 % (9.0-44.0); LYMPHOCYTE # 3.6 TH/MM3 (1.0-4.8); MEAN CELL VOLUME 91.8 FL (80.0-100.0); MEAN CORPUSCULAR HEMOGLOBIN 30.8 PG (27.0-34.0); MEAN CORPUSCULAR HGB CONC 33.5 % (32.0-36.0); MONO % 5.5 % (0.0-8.0); NEUT % 72.4 % (16.0-70.0); PLATELET COUNT 219 TH/MM3 (150-450); RED BLOOD COUNT 3.17 MIL/MM3 (4.50-5.90); RED CELL DISTRIBUTION WIDTH 13.7 % (11.6-17.2)
[2017-05-20 05:10] LABS: BICARBONATE 26.5 MEQ/L (21.0-32.0); MAGNESIUM 1.9 MG/DL (1.5-2.5); POTASSIUM 3.8 MEQ/L (3.5-5.1)
[2017-05-20] MEDS: oxyCODONE/ACETAMINOPHEN 5 MG/325 MG TAB PO PRN ×5 (08:19→22:58)
[2017-05-20] MEDS: MAGNESIUM HYDROXIDE SUSP 30 ML CUP PO SCH (08:31)
[2017-05-20] MEDS: PYRIDOSTIGMINE BROMIDE 60 MG TAB PO SCH ×4 (08:31→22:05)
[2017-05-20] MEDS: FUROSEMIDE 40 MG/4 ML VIAL IV PUSH SCH ×2 (08:31→18:05)
[2017-05-20] MEDS: DOCUSATE SODIUM 100 MG CAP PO SCH ×2 (08:32→22:06)
[2017-05-20] MEDS: predniSONE 5 MG TAB PO SCH (08:32)
[2017-05-20] MEDS: AMIODARONE 200 MG TAB PO SCH ×2 (08:32→22:06)
[2017-05-20] MEDS: ASPIRIN 81 MG CHEW TAB PO SCH (08:32)
[2017-05-20] MEDS: amLODIPine BESYLATE 5 MG TAB PO SCH (08:32)
[2017-05-20] MEDS: CLOPIDOGREL 75 MG TAB PO SCH (08:32)
[2017-05-20] MEDS: BACLOFEN 10 MG TAB PO SCH ×3 (08:33→18:04)
[2017-05-20] MEDS: PRAVASTATIN SOD 40 MG TAB PO SCH (08:33)
[2017-05-20] MEDS: MULTIVITAMINS/MINERALS THERAPEUTIC TAB PO SCH (08:34)
[2017-05-20] MEDS: METOPROLOL TARTRATE 25 MG TAB PO SCH ×2 (08:34→22:05)
[2017-05-20] MEDS: POLYETHYLENE GLYCOL 17 GM PKG PO SCH (08:35)
[2017-05-20] MEDS: LISINOPRIL 10 MG TAB PO SCH (08:35)
[2017-05-20] MEDS: SODIUM CHLORIDE 0.9% FLUSH 10 ML FLUSH IV FLUSH SCH ×2 (08:35→22:06)
--- NOTE | 2017-05-20 12:31 | PD.CAR.PN ---
CVT Progress Note CVT: POD #: 2 Subjective/Hospital Course: sts data discussed with pt RISK SCORES About the STS Risk Calculator Procedure: CAB Only Risk of Mortality: 0.713% Morbidity or Mortality: 8% Long Length of Stay: 2.38% Short Length of Stay: 60.828% Permanent Stroke: 0.733% Prolonged Ventilation: 5.042% DSW Infection: 0.225% Renal Failure: 1.623% Reoperation: 3.605% 05/19/17 Doing well. c/o incisional pain 05/20/17 No complaints Objective: Vital Signs Date Time Temp Pulse Resp B/P (MAP) Pulse Ox O2 Delivery O2 Flow Rate FiO2 05/20/17 07:15 98.0 118 20 122/81 (95) 92 05/20/17 06:33 116 05/20/17 05:40 120 05/20/17 04:20 114 05/20/17 03:20 98.5 121 20 106/69 (81) 92 05/20/17 03:20 108 05/20/17 02:24 106 05/20/17 01:08 104 05/20/17 00:00 107 05/19/17 23:11 98.7 113 20 121/80 (94) 96 05/19/17 23:00 94 05/19/17 22:00 102 05/19/17 21:49 97 Nasal Cannula 3.00 05/19/17 21:00 116 05/19/17 20:15 98.1 112 19 85/58 (67) 95 Arterial Line 05/19/17 20:15 114 05/19/17 19:00 112 05/19/17 18:00 110 05/19/17 16:15 108 05/19/17 16:00 97.7 108 20 145/84 (104) 95 05/19/17 15:00 104 05/19/17 15:00 98.2 104 16 92/56 (68) 94 05/19/17 14:30 16 05/19/17 14:00 101 05/19/17 13:00 102 Labs: Laboratory Tests Test 05/20/17 04:22 05/20/17 05:00 Blood Urea Nitrogen 23 MG/DL (7-18) Creatinine 1.06 MG/DL (0.60-1.30) Random Glucose 91 MG/DL (74-106) Calcium Level 7.8 MG/DL (8.5-10.1) Magnesium Level 1.9 MG/DL (1.5-2.5) Sodium Level 133 MEQ/L (136-145) Potassium Level 3.8 MEQ/L (3.5-5.1) Chloride Level 97 MEQ/L (98-107) Carbon Dioxide Level 26.5 MEQ/L (21.0-32.0) Anion Gap 10 MEQ/L (5-15) Estimat Glomerular Filtration Rate 69 ML/MIN (>89) White Blood Count 17.0 TH/MM3 (4.0-11.0) Red Blood Count 3.17 MIL/MM3 (4.50-5.90) Hemoglobin 9.8 GM/DL (13.0-17.0) Hematocrit 29.1 % (39.0-51.0) Mean Corpuscular Volume 91.8 FL (80.0-100.0) Mean Corpuscular Hemoglobin 30.8 PG (27.0-34.0) Mean Corpuscular Hemoglobin Concent 33.5 % (32.0-36.0) Red Cell Distribution Width 13.7 % (11.6-17.2) Platelet Count 219 TH/MM3 (150-450) Mean Platelet Volume 7.8 FL (7.0-11.0) Neutrophils (%) (Auto) 72.4 % (16.0-70.0) Lymphocytes (%) (Auto) 21.3 % (9.0-44.0) Monocytes (%) (Auto) 5.5 % (0.0-8.0) Eosinophils (%) (Auto) 0.4 % (0.0-4.0) Basophils (%) (Auto) 0.4 % (0.0-2.0) Neutrophils # (Auto) 12.3 TH/MM3 (1.8-7.7) Lymphocytes # (Auto) 3.6 TH/MM3 (1.0-4.8) Monocytes # (Auto) 0.9 TH/MM3 (0-0.9) Eosinophils # (Auto) 0.1 TH/MM3 (0-0.4) Basophils # (Auto) 0.1 TH/MM3 (0-0.2) CBC Comment DIFF FINAL Differential Comment Result Diagram: 05/20/17 0500 05/20/17 0422 Cardiovascular: RRR Telemetry: NSR Pulmonary: CTA GI/: NABS/NT Incision: dry and intact CT: ~100ml / 6hrs Plan: Diurese Cont chest tubes one more day Stim BM Up to chair Wean O2 Aleida Mendoza MD May 20, 2017 12:30
[2017-05-20] MEDS ORDERED: SODIUM CHLORID 0.9% 500 ML INJ 500 ML IV ONE (16:45)
[2017-05-20] MEDS: FENOFIBRATE 145 MG TAB PO SCH (22:05)
[2017-05-20] MEDS: SENNOSIDES 8.6 MG TAB PO SCH (22:06)
[2017-05-21] VITALS (29 sets, daily range): BP systolic 102–123; BP diastolic 58–75; PULSE 77–112; RESP 16–18; TEMP 98.1–98.6; O2SAT 94–97
[2017-05-21] MEDS: PANTOPRAZOLE SOD 40 MG DELAYED RELEASE TAB PO SCH (05:04)
[2017-05-21] MEDS: INDIVIDUALIZED INSULIN NOVOLOG SUPPLEMENTAL SCALE SQ SCH (05:04)
[2017-05-21] MEDS: oxyCODONE/ACETAMINOPHEN 5 MG/325 MG TAB PO PRN ×4 (05:06→18:28)
[2017-05-21] MEDS: MAGNESIUM HYDROXIDE SUSP 30 ML CUP PO SCH (09:00)
[2017-05-21] MEDS: AMIODARONE 200 MG TAB PO SCH ×2 (09:07→21:35)
[2017-05-21] MEDS: CLOPIDOGREL 75 MG TAB PO SCH (09:07)
[2017-05-21] MEDS: PYRIDOSTIGMINE BROMIDE 60 MG TAB PO SCH ×4 (09:07→21:34)
[2017-05-21] MEDS: PRAVASTATIN SOD 40 MG TAB PO SCH (09:07)
[2017-05-21] MEDS: ASPIRIN 81 MG CHEW TAB PO SCH (09:08)
[2017-05-21] MEDS: SODIUM CHLORIDE 0.9% FLUSH 10 ML FLUSH IV FLUSH SCH ×2 (09:08→21:35)
[2017-05-21] MEDS: BACLOFEN 10 MG TAB PO SCH ×3 (09:08→18:27)
[2017-05-21] MEDS: predniSONE 5 MG TAB PO SCH (09:08)
[2017-05-21] MEDS: MULTIVITAMINS/MINERALS THERAPEUTIC TAB PO SCH (09:08)
[2017-05-21] MEDS: DOCUSATE SODIUM 100 MG CAP PO SCH ×2 (09:08→21:00)
[2017-05-21] MEDS: POLYETHYLENE GLYCOL 17 GM PKG PO SCH (09:09)
[2017-05-21] MEDS: METOPROLOL TARTRATE 25 MG TAB PO SCH ×2 (10:02→21:35)
[2017-05-21 11:09] LABS: BICARBONATE 27.1 MEQ/L (21.0-32.0); MAGNESIUM 2.4 MG/DL (1.5-2.5); POTASSIUM 3.9 MEQ/L (3.5-5.1)
--- NOTE | 2017-05-21 12:55 | PD.CAR.PN ---
CVT Progress Note Subjective/Hospital Course: 67/ male 6 month hx of indigestion fatigue , + exercise stress test, worsening symptoms 2 weeks ago . Underwent cardiac cath by Dr Nunn multivessel disease , 90% left main EF 45% Eval for CABG , during eval he was found to have DVT left peroneal and posterior tibial vein PMH: anxiety, chronic back pain , Myasthenia gravis on Mestinon, OA HTN, DM Type II , moderate LV dysfunction surgery: 05/18 : 1. Urgent Off-pump Coronary Artery Bypass Grafting x 4 with Left Internal Mammary Artery (NAPIER) to Left Anterior Descending (LAD), reverse saphenous vein graft to OM1, reverse saphenous vein graft to the RCA 2. Trans-sternal Total Thymectomy 3. Right Leg Endoscopic Vein [place] 4. Intraoperative Vein Mapping. 05/19/17 Doing well. c/o incisional pain 05/20/17 No complaints 05/21 BB reduced , bishnu and amlodipine held 2/2 labile Bp/ s/p IV fluids over the weekend chest tube dc without difficulty recent DX of left leg DVT, will start Xarelto 15mg bid x 21 days, then 20mg daily + BM eval for dc to rehab tomorrow Objective: GENERAL: SKIN: Warm and dry. PREVENA DRESSING TO CHEST , right leg incision intact HEAD: Normocephalic. EYES: No scleral icterus. No injection or drainage. NECK: Supple, trachea midline. No JVD or lymphadenopathy. CARDIOVASCULAR: Regular rate and rhythm without murmurs, gallops, or rubs. RESPIRATORY: Breath sounds equal bilaterally. No accessory muscle use. GASTROINTESTINAL: Abdomen soft, non-tender, nondistended. MUSCULOSKELETAL: No cyanosis, or edema. BACK: Nontender without obvious deformity. No CVA tenderness. Vital Signs Date Time Temp Pulse Resp B/P (MAP) Pulse Ox O2 Delivery O2 Flow Rate FiO2 05/21/17 11:46 98.2 99 16 102/59 (73) 96 05/21/17 07:40 98.3 101 16 111/65 (80) 97 05/21/17 07:40 94 Nasal Cannula 2.00 05/21/17 06:38 86 05/21/17 05:41 91 05/21/17 04:10 92 05/21/17 03:39 83 05/21/17 03:39 98.1 89 18 106/63 (77) 94 05/21/17 02:32 85 05/21/17 01:36 84 05/21/17 00:23 91 05/20/17 23:51 98.0 104 20 113/66 (82) 93 05/20/17 23:00 109 05/20/17 22:00 102 05/20/17 21:00 100 05/20/17 20:20 102 05/20/17 19:22 97.9 111 19 94/57 (69) 93 05/20/17 19:22 129 05/20/17 18:00 108 05/20/17 17:00 102 05/20/17 16:00 83/48 (60) 05/20/17 16:00 106 05/20/17 15:00 108 05/20/17 15:00 106 16 91/53 (66) 94 05/20/17 14:00 100 05/20/17 13:00 104 Labs: Laboratory Tests Test 05/21/17 09:47 Blood Urea Nitrogen 23 MG/DL (7-18) Creatinine 0.99 MG/DL (0.60-1.30) Random Glucose 108 MG/DL (74-106) Calcium Level 8.4 MG/DL (8.5-10.1) Magnesium Level 2.4 MG/DL (1.5-2.5) Sodium Level 135 MEQ/L (136-145) Potassium Level 3.9 MEQ/L (3.5-5.1) Chloride Level 99 MEQ/L (98-107) Carbon Dioxide Level 27.1 MEQ/L (21.0-32.0) Anion Gap 9 MEQ/L (5-15) Estimat Glomerular Filtration Rate 75 ML/MIN (>89) Result Diagram: 05/20/17 0500 05/21/17 0947 Telemetry: NSR (1) Coronary artery disease (2) S/P CABG x 4 Plan: ASA, statin , BB add low dose bishnu when BP tolerates pulm toileting nebs, ezpap eval for rehab in am (3) Hyperlipidemia Plan: on statin (4) Myasthenia gravis Plan: resume home meds s/p thymectomy (5) Osteoarthritis (6) HTN (hypertension) Plan: BP on low side amlodipine and bishnu stopped (7) DVT (deep venous thrombosis) Plan: start xarelto this Angela Rodrigues May 21, 2017 12:55
[2017-05-21] MEDS: SENNOSIDES 8.6 MG TAB PO SCH (21:00)
[2017-05-21] MEDS: FENOFIBRATE 145 MG TAB PO SCH (21:34)
[2017-05-21] MEDS: RIVAROXABAN 15 MG TAB PO SCH (21:34)
[2017-05-22] VITALS (20 sets, daily range): BP systolic 114–133; BP diastolic 66–78; PULSE 78–102; RESP 16–17; TEMP 98–98.1; O2SAT 95–97
[2017-05-22] MEDS: oxyCODONE/ACETAMINOPHEN 5 MG/325 MG TAB PO PRN ×3 (02:20→08:53)
--- NOTE | 2017-05-22 04:41 | RADRPT ---
EXAM DATE/TIME: 05/22/2017 04:02 [facility] COMPARISON: CHEST SINGLE AP, May 19, 2017, 4:04. INDICATIONS : Short of breath. MEDICAL HISTORY : Hypertension. Hypercholesterolemia. SURGICAL HISTORY : CABG. ENCOUNTER: Subsequent ACUITY: 4 - 6 days PAIN SCORE: 0/10 LOCATION: Bilateral chest FINDINGS: Portable AP view of the chest demonstrates a normal-sized cardiac silhouette in this patient post med lex sternotomy. Lungs are underinflated with elevated right hemidiaphragm. The right internal jugular line, mediastinal drain, and left chest tube have been removed. There is mild opacity at the left ba se. No pleural effusion or pneumothorax is identified. Bones and soft tissues demonstrate no acute fi nding. CONCLUSION: 1. No pneumothorax following left chest tube removal. 2. Mild opacity at the left lung base representing either atelectasis or consolidation. Rodney Anton MD on May 22, 2017 at 4:39 Board Certified Radiologist. This report was verified electronically.
[2017-05-22] MEDS: PANTOPRAZOLE SOD 40 MG DELAYED RELEASE TAB PO SCH (05:43)
[2017-05-22] MEDS: PYRIDOSTIGMINE BROMIDE 60 MG TAB PO SCH ×2 (08:52→13:48)
[2017-05-22] MEDS: METOPROLOL TARTRATE 25 MG TAB PO SCH (08:53)
[2017-05-22] MEDS: PRAVASTATIN SOD 40 MG TAB PO SCH (08:53)
[2017-05-22] MEDS: MULTIVITAMINS/MINERALS THERAPEUTIC TAB PO SCH (08:53)
[2017-05-22] MEDS: predniSONE 5 MG TAB PO SCH (08:53)
[2017-05-22] MEDS: BACLOFEN 10 MG TAB PO SCH ×2 (08:53→13:48)
[2017-05-22] MEDS: RIVAROXABAN 15 MG TAB PO SCH (08:53)
[2017-05-22] MEDS: POLYETHYLENE GLYCOL 17 GM PKG PO SCH (08:54)
[2017-05-22] MEDS: MAGNESIUM HYDROXIDE SUSP 30 ML CUP PO SCH (08:54)
[2017-05-22] MEDS: ASPIRIN 81 MG CHEW TAB PO SCH (08:54)
[2017-05-22] MEDS: DOCUSATE SODIUM 100 MG CAP PO SCH (08:54)
[2017-05-22] MEDS: AMIODARONE 200 MG TAB PO SCH (08:54)
[2017-05-22] MEDS: SODIUM CHLORIDE 0.9% FLUSH 10 ML FLUSH IV FLUSH SCH (08:54)
--- NOTE | 2017-05-22 10:57 | PD.CAR.PN ---
CVT Progress Note CVT: POD #: 4 Subjective/Hospital Course: 67/ male 6 month hx of indigestion fatigue , + exercise stress test, worsening symptoms 2 weeks ago . Underwent cardiac cath by Dr Nunn multivessel disease , 90% left main EF 45% Eval for CABG , during eval he was found to have DVT left peroneal and posterior tibial vein PMH: anxiety, chronic back pain , Myasthenia gravis on Mestinon, OA HTN, DM Type II , moderate LV dysfunction surgery: 05/18 : 1. Urgent Off-pump Coronary Artery Bypass Grafting x 4 with Left Internal Mammary Artery (NAPIER) to Left Anterior Descending (LAD), reverse saphenous vein graft to OM1, reverse saphenous vein graft to the RCA 2. Trans-sternal Total Thymectomy 3. Right Leg Endoscopic Vein [place] 4. Intraoperative Vein Mapping. 05/19/17 Doing well. c/o incisional pain 05/20/17 No complaints 05/21 BB reduced , bishnu and amlodipine held 2/2 labile Bp/ s/p IV fluids over the weekend chest tube dc without difficulty recent DX of left leg DVT, will start Xarelto 15mg bid x 21 days, then 20mg daily + BM eval for dc to rehab tomorrow 05/22 doing well , on xarelto for DVT BP improved, stable for dc to rehab, CXR no PTX, some atelectasis left lung base + BM , on low dose BB statin , ASA recheck CBC, WBC 17K 05/20 2/2 intraop steroids will eval for transfer to rehab today Objective: GENERAL: SKIN: Warm and dry. prevena to chest , incision intact right leg HEAD: Atraumatic. Normocephalic. EYES: Pupils equal and round. No scleral icterus. No injection or drainage. ENT: No nasal bleeding or discharge. Mucous membranes pink and moist. NECK: Trachea midline. No JVD. CARDIOVASCULAR: Regular rate and rhythm. RESPIRATORY: No accessory muscle use. Clear to auscultation. Breath sounds equal bilaterally. GASTROINTESTINAL: Abdomen soft, non-tender, nondistended. Hepatic and splenic margins not palpable. MUSCULOSKELETAL: Extremities without clubbing, cyanosis, or edema. No obvious deformities. NEUROLOGICAL: Awake and alert. No obvious cranial nerve deficits. Motor grossly within normal limits. Five out of 5 muscle strength in the arms and legs. Normal speech. PSYCHIATRIC: Appropriate mood and affect; insight and judgment normal. Vital Signs Date Time Temp Pulse Resp B/P (MAP) Pulse Ox O2 Delivery O2 Flow Rate FiO2 05/22/17 10:00 78 05/22/17 09:00 102 05/22/17 08:00 86 05/22/17 07:36 98.0 89 16 127/66 (86) 97 05/22/17 07:00 92 05/22/17 06:00 89 05/22/17 05:12 96 Nasal Cannula 1.00 05/22/17 05:04 83 05/22/17 04:03 87 05/22/17 03:35 98.1 88 17 133/78 (96) 95 05/22/17 03:35 85 05/22/17 02:00 102 05/22/17 01:04 83 05/22/17 00:00 82 05/21/17 23:40 98.6 82 17 123/75 (91) 96 05/21/17 23:00 77 05/21/17 22:00 90 05/21/17 21:00 94 05/21/17 20:00 98 05/21/17 19:30 98.1 97 18 107/66 (80) 97 05/21/17 19:30 95 05/21/17 18:00 93 05/21/17 17:19 95 05/21/17 17:00 86 05/21/17 16:00 88 05/21/17 15:15 98.4 87 18 107/58 (74) 97 05/21/17 15:00 90 05/21/17 14:00 90 05/21/17 13:00 92 05/21/17 12:00 98 05/21/17 11:46 98.2 99 16 102/59 (73) 96 05/21/17 11:00 100 Result Diagram: 05/20/17 0500 05/21/17 0947 Telemetry: NSR (1) Coronary artery disease (2) S/P CABG x 4 Plan: ASA, statin , BB pulm toileting nebs, ezpap eval for rehab today (3) Hyperlipidemia Plan: on statin (4) Myasthenia gravis Plan: resume home meds Mestinon s/p thymectomy (5) Osteoarthritis (6) HTN (hypertension) Plan: BP on low side amlodipine and bishnu stopped (7) DVT (deep venous thrombosis) Plan: Angela Craven May 22, 2017 10:57
[2017-05-22] MEDS ORDERED: XARE15TA PO (11:11)
[2017-05-22] MEDS ORDERED: XARE20TA PO (11:11)
[2017-05-22] MEDS ORDERED: DOCU1CAP39 PO (11:11)
[2017-05-22] MEDS ORDERED: POLY17S PO (11:11)
[2017-05-22] MEDS ORDERED: AMIO200T PO (11:11)
[2017-05-22] MEDS ORDERED: OXYC1TAB63 PO (11:11)
[2017-05-22] MEDS ORDERED: ASPI81CH25 PO (11:11)
[2017-05-22] MEDS ORDERED: LISI2.5T3 PO (11:40)
--- NOTE | 2017-05-22 11:46 | HHI.DS ---
Discharge Summary Admission Date May 17, 2017 at 14:33 Discharge Date: May 22, 2017 Admitting Diagnosis 1. Severe Multi Vessel Coronary Artery Disease. 2. Moderate Left Ventricular Dysfunction (EF 40-45 %) 3. Myasthenia Gravis 4. Acute Deep Vein Thrombosis - Left leg 5. Critical Left Main stenosis (1) Coronary artery disease ICD Codes: I25.10 - Atherosclerotic heart disease of [place] coronary artery without angina pectoris Status: Chronic (2) Hyperlipidemia ICD Codes: E78.5 - Hyperlipidemia, unspecified Status: Chronic (3) Myasthenia gravis ICD Codes: G70.00 - Myasthenia gravis without (acute) exacerbation Status: Chronic (4) Osteoarthritis ICD Codes: M19.90 - Unspecified osteoarthritis, unspecified site Status: Chronic (5) HTN (hypertension) ICD Codes: I10 - Essential (primary) hypertension Status: Chronic (6) DVT (deep venous thrombosis) Diagnosis: Principal ICD Codes: I82.409 - Acute embolism and thrombosis of unspecified deep veins of unspecified lower extremity (7) S/P CABG x 4 Diagnosis: Secondary ICD Codes: Z95.1 - Presence of aortocoronary bypass graft Procedures 1. Urgent Off-pump Coronary Artery Bypass Grafting x 4 with Left Internal Mammary Artery (NAPIER) to Left Anterior Descending (LAD), reverse saphenous vein graft to OM1, reverse saphenous vein graft to the RCA 2. Trans-sternal Total Thymectomy 3. Right Leg Endoscopic Vein [place] 4. Intraoperative Vein Mapping. 05/18/17 Brief History 67/ male 6 month hx of indigestion fatigue , + exercise stress test, worsening symptoms 2 weeks ago . Underwent cardiac cath by Dr Nunn multivessel disease , 90% left main EF 45% Eval for CABG , during eval he was found to have DVT left peroneal and posterior tibial vein PMH: anxiety, chronic back pain , Myasthenia gravis on Mestinon, OA HTN, DM Type II , moderate LV dysfunction surgery: 05/18 : 1. Urgent Off-pump Coronary Artery Bypass Grafting x 4 with Left Internal Mammary Artery (NAPIER) to Left Anterior Descending (LAD), reverse saphenous vein graft to OM1, reverse saphenous vein graft to the RCA 2. Trans-sternal Total Thymectomy 3. Right Leg Endoscopic Vein [place] 4. Intraoperative Vein Mapping. CBC/BMP: 05/20/17 0500 05/21/17 0947 Significant Findings Laboratory Tests Test 05/20/17 04:22 05/20/17 05:00 05/21/17 09:47 Blood Urea Nitrogen 23 MG/DL (7-18) 23 MG/DL (7-18) Calcium Level 7.8 MG/DL (8.5-10.1) 8.4 MG/DL (8.5-10.1) Sodium Level 133 MEQ/L (136-145) 135 MEQ/L (136-145) Chloride Level 97 MEQ/L (98-107) Estimat Glomerular Filtration Rate 69 ML/MIN (>89) 75 ML/MIN (>89) White Blood Count 17.0 TH/MM3 (4.0-11.0) Red Blood Count 3.17 MIL/MM3 (4.50-5.90) Hemoglobin 9.8 GM/DL (13.0-17.0) Hematocrit 29.1 % (39.0-51.0) Neutrophils (%) (Auto) 72.4 % (16.0-70.0) Neutrophils # (Auto) 12.3 TH/MM3 (1.8-7.7) Random Glucose 108 MG/DL (74-106) Imaging Last Impressions Chest X-Ray 05/22/17 0600 Signed Impressions: Service Date/Time: Monday, May 22, 2017 04:02 - CONCLUSION: 1. No pneumothorax following left chest tube removal. 2. Mild opacity at the left lung base representing either atelectasis or consolidation. Rodney Anton MD Lower Extremity Ultrasound 05/17/17 0000 Signed Impressions: Service Date/Time: April 11:22 - CONCLUSION: 1. Lower extremity venous mapping, as above. Chandra Brown MD Carotid Artery Ultrasound 05/17/17 0000 Signed Impressions: Service Date/Time: April 11:05 - CONCLUSION: 1. Mild carotid plaque without significant flow-limiting stenosis. 2. Antegrade vertebral artery flow bilaterally. Chandra Brown MD PE at Discharge GENERAL: SKIN: Warm and dry. prevena to chest , incision intact to right leg HEAD: Atraumatic. Normocephalic. EYES: Pupils equal and round. No scleral icterus. No injection or drainage. ENT: No nasal bleeding or discharge. Mucous membranes pink and moist. NECK: Trachea midline. No JVD. CARDIOVASCULAR: Regular rate and rhythm. RESPIRATORY: No accessory muscle use. Clear to auscultation. Breath sounds equal bilaterally. GASTROINTESTINAL: Abdomen soft, non-tender, nondistended. Hepatic and splenic margins not palpable. MUSCULOSKELETAL: Extremities without clubbing, cyanosis, or edema. No obvious deformities. NEUROLOGICAL: Awake and alert. No obvious cranial nerve deficits. Motor grossly within normal limits. Five out of 5 muscle strength in the arms and legs. Normal speech. PSYCHIATRIC: Appropriate mood and affect; insight and judgment normal. Hospital Course 05/19/17 Doing well. c/o incisional pain 05/20/17 No complaints 05/21 BB reduced , bishnu and amlodipine held 2/2 labile Bp/ s/p IV fluids over the weekend chest tube dc without difficulty recent DX of left leg DVT, will start Xarelto 15mg bid x 21 days, then 20mg daily + BM eval for dc to rehab tomorrow 05/22 doing well , on xarelto for DVT BP improved, stable for dc to rehab, CXR no PTX, some atelectasis left lung base + BM , on low dose BB statin , ASA recheck CBC, WBC 17K 05/20 2/2 intraop steroids will eval for transfer to rehab today no evidence of afib/ will continue amiodarone 200mg bid x 2 weeks for 05/19/17 Doing well. c/o incisional pain 05/20/17 No complaints 05/21 BB reduced , bishnu and amlodipine held 2/2 labile Bp/ s/p IV fluids over the weekend chest tube dc without difficulty recent DX of left leg DVT, will start Xarelto 15mg bid x 21 days, then 20mg daily + BM eval for dc to rehab tomorrow 05/22 doing well , on xarelto for DVT BP improved, stable for dc to rehab, CXR no PTX, some atelectasis left lung base + BM , on low dose BB statin , ASA recheck CBC, WBC 17K 05/20 2/2 intraop steroids will eval for transfer to rehab today prophylaxis Pt Condition on Discharge: Good Discharge Disposition: Rehab Inpatient Discharge Instructions DIET: Follow Instructions for: Heart Healthy Diet Activities you can perform: Full Weight Bearing, Shower Only-No Bath Activities to avoid: Strenuous Activity, Driving Additional Activity Instructio: no lifting > 8 lbs or gallon of milk Follow up Referrals: Appointment for Follow Up Appointment for Follow Up PCP Follow-up New Medications: Lisinopril (Lisinopril) 2.5 Mg Tab 2.5 MG PO DAILY, #30 TAB 2 Refills Amiodarone (Amiodarone) 200 Mg Tab 200 MG PO Q12HR for heart rhythm for 14 Days, #28 TAB 0 Refills antiarrytmic drugh to prevent irregular heart rhythm, on prophylaxis 2 weeks only, no refill Aspirin (Aspirin Low Strength) 81 Mg Chew 81 MG PO DAILY for Blood Clot Prevention, #100 EA 2 Refills Docusate Sodium (Dok) 100 Mg Cap 100 MG PO BID for Constipation, #60 CAP 0 Refills Oxycodone-Acetaminophen (Oxycodone-Acetaminophen) 5-325 mg Tab 1 TAB PO Q6H PRN for PAIN SCALE 1 TO 5, #40 TAB 0 Refills Polyethylene Glycol 3350 Powder (Polyethylene Glycol 3350 Powder) 17 Gram Pow 17 GM PO DAILY for Constipation, #30 PACK Rivaroxaban (Xarelto) 15 Mg Tab 15 MG PO BID for Blood Clot Prevention for 20 Days, #40 TAB 0 Refills pt to take 15mg bid x 20 days, then take 20mg daily Rivaroxaban (Xarelto) 20 Mg Tab 20 MG PO DAILY for Blood Clot Prevention, #30 TAB 2 Refills pt to start on 06/10/17 only 20mg daily Continued Medications: Acetaminophen (Tylenol) 325 Mg Tab 325 MG PO Q4H PRN for PAIN 1 TO 10 AND/OR AGITATION, TAB 0 Refills Ascorbic Acid (Vitamin C) 250 Mg Tab 1000 MG PO DAILY for Nutritional Supplement, TAB 0 Refills Baclofen (Baclofen) 10 Mg Tab 10 MG PO TID for Muscle Spasm, TAB 0 Refills Cyanocobalamin (B12) 1,000 Mcg Tab 5000 MG PO DAILY Fenofibrate (Fenofibrate) 145 Mg Tab 145 MG PO HS, #30 TAB 0 Refills Fish Oil-Cholecalciferol (Fish Oil + D3) 1,200-1,000 Mg-Unit Cap 1 CAP PO DAILY for Nutritional Supplement, #30 CAP 0 Refills Lactobacillus Acidophilus (Probiotic) 1 Cap Cap 1 CAP PO TIDAC for Nutritional Supplement, #90 CAP 0 Refills Magnesium Oxide (Magnesium Oxide) 400 Mg Tab 400 MG PO DAILY for Nutritional Supplement, TAB 0 Refills Metoprolol Tartrate (Metoprolol Tartrate) 25 Mg Tab 25 MG PO BID, #60 TAB 0 Refills Multiple Vitamin (Multiple Vitamin) 1 Tab 1 TAB PO DAILY for Nutritional Supplement, TAB 0 Refills Omeprazole (Omeprazole) 20 Mg Tab 20 MG PO DAILY, #30 TAB 0 Refills Pravastatin (Pravastatin) 40 Mg Tab 40 MG PO DAILY for Cholesterol Management, #30 TAB 0 Refills Prednisone (Prednisone) 5 Mg Tab 5 MG PO DAILY, TAB 0 Refills Propylene Glycol-Glycerin Opth Drops (Artificial Tears Opth Drops) 1-0.3% Drops 1-2 DROP EACH EYE PRN PRN for DRY EYE, #15 ML 0 Refills Pyridostigmine (Mestinon) 60 Mg Tab 60 MG PO QID for Manage Myastenia Gravis, #180 TAB 0 Refills Zinc Gluconate (Zinc Gluconate) 50 Mg Tab 50 MG PO DAILY, TAB Discontinued Medications: Amlodipine (Amlodipine) 5 Mg Tab 5 MG PO DAILY for Blood Pressure Management, #30 TAB 0 Refills Benazepril (Benazepril) 40 Mg Tab 40 MG PO DAILY for Blood Pressure Management, #30 TAB 0 Refills Coenzyme Q10 (Ubidecarenone) (Co Q 10) 100 Mg Cap 200 MG P-ARTICULR DAILY Flaxseed Oil (Flax Seed Oil) 1,000 Mg Capsule 1000 MG PO DAILY Garcinia Cambogia-Chromium (Garcinia Cambogia 500-200 mg-Mcg) 1 Tab Tab 1 TAB PO DAILY Grape Seed (Bulk) (Grapeseed (Bulk)) 1 Oil Oil 100 MG PO DAILY Hydrocodone-Acetaminophen ([place]) 10-325 Mg Tab 1-2 TAB PO Q4H PRN for PAIN, #60 TAB 0 Refills Nitroglycerin SL (Nitrostat SL) 0.4 Mg Subl 0.4 MG SL DIRECTED PRN for CHEST PAIN, #100 TAB.SL 0 Refills 1 tablet under the tongue as needed for chest pain. Repeat every 5 minutes for a total of 3 DOSES or call 911 if NO relief. Peppermint Oil (Ibgard) 90 Mg Capdr...er 1 MG PO DA [place] (Serenoa Repens) (S[place] (Serenoa Repens)) 450 Mg Cap 1000 MG PO DAILY, CAP 0 Refills [[place]] () 1 CAP P-ARTICULR DAILY [Glucocil] () 2 TAB PO DAILY [Hyalyronic Acid] () [[place] K] () 1000 MG P-ARTICULR DAILY [Oregano Oil] () 500 MG PO DAILY [Red Ginseng Root] () 400 MG P-ARTICULR DAILY [Sea Kelp] () 150 MG P-ARTICULR DAILY [Tumeric Curcumin] () 720 MG PO DAILY Angela Shipley May 22, 2017 11:46
[2017-05-22 13:53] LABS: AUTOMATED NEUTROPHIL # 9.9 TH/MM3 (1.8-7.7); BASOPHIL # 0.1 TH/MM3 (0-0.2); BASOPHIL % 0.6 % (0.0-2.0); EOSINOPHIL # 0.1 TH/MM3 (0-0.4); EOSINOPHIL % 0.7 % (0.0-4.0); HEMATOCRIT 29.6 % (39.0-51.0); HEMO FLAGS DIFF FINAL; LYMPH % 14.3 % (9.0-44.0); LYMPHOCYTE # 1.8 TH/MM3 (1.0-4.8); MEAN CELL VOLUME 92.2 FL (80.0-100.0); MEAN CORPUSCULAR HEMOGLOBIN 32.2 PG (27.0-34.0); MEAN CORPUSCULAR HGB CONC 34.9 % (32.0-36.0); MONO % 5.8 % (0.0-8.0); NEUT % 78.6 % (16.0-70.0); PLATELET COUNT 352 TH/MM3 (150-450); RED BLOOD COUNT 3.21 MIL/MM3 (4.50-5.90); RED CELL DISTRIBUTION WIDTH 13.9 % (11.6-17.2); WHITE BLOOD COUNT 12.6 TH/MM3 (4.0-11.0)
[2017-05-22 14:09] LABS: BICARBONATE 28.7 MEQ/L (21.0-32.0); MAGNESIUM 2.2 MG/DL (1.5-2.5); POTASSIUM 3.9 MEQ/L (3.5-5.1)
[2017-05-30] MEDS ORDERED: MEST60TA PO (10:29)
[2017-05-30] MEDS ORDERED: XARE15TA PO (10:29)
[2017-05-30] MEDS ORDERED: METO25TA3 PO (10:29)
[2017-05-30] MEDS ORDERED: MAGN400T2 PO (10:29)
[2017-05-30] MEDS ORDERED: FENO145T2 PO (10:29)
[2017-05-30] MEDS ORDERED: CYAN1TAB24 PO (10:29)
[2017-05-30] MEDS ORDERED: XARE20TA PO (10:29)
[2017-05-30] MEDS ORDERED: FERR325T20 PO (10:29)
[2017-05-30] MEDS ORDERED: OMEP20TA PO (10:29)
[2017-05-30] MEDS ORDERED: PRED5TAB PO (10:29)
[2017-05-30] MEDS ORDERED: AMIO200T PO (10:29)
[2017-05-30] MEDS ORDERED: ASPI81CH25 PO (10:29)
[2017-05-30] MEDS ORDERED: FISHCAP4 PO (10:29)
[2017-05-30] MEDS ORDERED: OXYC1TAB63 PO (10:29)
[2017-05-30] MEDS ORDERED: BACL10TA PO (10:29)
[2017-05-30] MEDS ORDERED: CALC500T30 PO (10:29)
[2017-05-30] MEDS ORDERED: MULTTAB67 PO (10:29)
[2017-05-30] MEDS ORDERED: PRAV40TA2 PO (10:29)
[2017-05-30] MEDS ORDERED: ACET1TAB86 PO (10:29)
[2017-05-30] MEDS ORDERED: DOCU1CAP39 PO (10:29)
[2017-05-30] MEDS ORDERED: LISI2.5T3 PO (10:29)
--- NOTE | 2017-06-04 10:22 | PQ ---
Physician Query Response Document PATIENT: JANIA MAHARAJ : 1950 ADMIT DATE: 05/17/2017 2:33 PM DISCH DATE: 05/22/2017 2:40 PM RESPONDING PROVIDER #: [email or web address] QUERY TEXT: Conflicting Documentation Clarification A single mention or documentation of multiple diagnoses for the same clinical presentation appears in the record. Please clarify the diagnosis/diagnoses: CABG x 4 or CABG x3? If you have any additional questions/comments and/or concerns, please do not hesitate to reach out to the CDI/Coding Hotline, Ext. [phone]. The patient's Clinical Indicators include: Operative report documents: . Urgent Off-pump Coronary Artery Bypass Grafting x 4 with Left Internal Mammary Artery (NAPIER) to Left Anterior Descending (LAD), reverse saphenous vein graft to OM1, revers e saphenous vein graft to the RCA (States CABG x 4, but only 3 recipient sites documented-NAPIER to LAD, SVG to OM1, SVG to RCA) Query created by: Nubia Zheng on 05/29/2017 10:11 AM RESPONSE TEXT: Correction: The patient underwent Off Pump CABG x 3, and not CABG x 4 as dictated in the Op note. Electronically signed by: Lupillo Valdivia MD 06/04/2017 10:18 AM
[2017-06-10] MEDS ORDERED: RIVAROXABAN 20 MG TAB PO SCH (09:00)
== END 2017-05-22 14:40 | DRG 234 ==
LOC: HCAT 06:19 → HDIC 06:20 → HCIN 13:48 → HCAT 14:33 → HCIS 05-18 07:16 → HCVR 05-18 12:20 → HCIN 05-19 16:45
PROVIDERS: ADMIT Thoracic Surgery (Cardiothoracic Vascular Surgery); ATTEND Thoracic Surgery (Cardiothoracic Vascular Surgery)
PROC: 4A023N7 Measurement of Cardiac Sampling and Pressure, Left Heart, Percutaneous Approach (ICD-10-PCS; 2017-05-17)
PROC: B2111ZZ Fluoroscopy of Multiple Coronary Arteries using Low Osmolar Contrast (ICD-10-PCS; 2017-05-17)
PROC: B2151ZZ Fluoroscopy of Left Heart using Low Osmolar Contrast (ICD-10-PCS; 2017-05-17)
PROC: 06BP4ZZ Excision of Right Saphenous Vein, Percutaneous Endoscopic Approach (ICD-10-PCS; 2017-05-18)
PROC: 07TM0ZZ Resection of Thymus, Open Approach (ICD-10-PCS; 2017-05-18)
PROC: 021109W Bypass Coronary Artery, Two Arteries from Aorta with Autologous Venous Tissue, Open Approach (ICD-10-PCS; principal; 2017-05-18 06:58)
PROC: 02100Z9 Bypass Coronary Artery, One Artery from Left Internal Mammary, Open Approach (ICD-10-PCS; 2017-05-18 06:58)
DX: I25.10 Atherosclerotic heart disease of native coronary artery without angina pectoris (principal); G70.00 Myasthenia gravis without (acute) exacerbation; I82.442 Acute embolism and thrombosis of left tibial vein; E78.5 Hyperlipidemia, unspecified; M19.90 Unspecified osteoarthritis, unspecified site; I10 Essential (primary) hypertension; Z96.651 Presence of right artificial knee joint; E66.9 Obesity, unspecified; Z68.29 Body mass index [BMI] 29.0-29.9, adult; E11.9 Type 2 diabetes mellitus without complications; Z79.52 Long term (current) use of systemic steroids; M54.9 Dorsalgia, unspecified; G89.29 Other chronic pain; F41.9 Anxiety disorder, unspecified
CPT/HCPCS: 71010; 71020; 76937; 80048; 80053; 81001; 82948; 83036; 83735; 85007; 85014; 85025; 85027; 85610; 86850; 86900; 86901; 86920; 87641; 88307; 93005; 93318; 93458; 93880; 93970; 93998; 94002; 94010; 94150; 94640; 94664; 94667; 94668; C1768; C1769; C1893; J0131; J0610; J0690; J1644; J1815; J1885; J1940; J2250; J2270; J2440; J2720; J2930; J3010; J3370; J3475; J3480; J7120; J7512; Q9967